=== PATIENT | female | born 1970 | race Caucasian/White ===

== ENCOUNTER 2016-09-27 15:38 | Emergency (ER) | payer BC, OTHER ==
[~2016-09-27] VITALS: Ht 160 cm; Wt 64.0 kg
[2016-09-27 15:55] VITALS: TEMP 37; Ht 160 cm; Wt 64.0 kg
[2016-09-27] MEDS ORDERED: HYDROmorphone INJ 1 MG/ML SYR IV STA ×2 (16:19→17:17)
[2016-09-27] MEDS ORDERED: SODIUM CHLORIDE 0.9% 1000ML 1,000 ML IV STA (16:19)
[2016-09-27] MEDS ORDERED: OPTIRAY 320 IV PRN (16:30)
[2016-09-27] MEDS ORDERED: CYAN10005 PO (16:31)
[2016-09-27] MEDS ORDERED: CHOLTAB11 PO (16:31)
[2016-09-27] MEDS ORDERED: LEVO75TA PO (16:31)
[2016-09-27] MEDS ORDERED: ASCO100061 PO (16:31)
[2016-09-27 16:54] LABS: ISTAT CREATININE 0.5 mg/dl (0.6-1.3); ISTAT IONIZED CALCIUM 1.11 mmol/l (1.12-1.32)
[2016-09-27 16:58] LABS: BASO % 0.4 %; BASO ABS # 0.03 K/uL (0-0.2); COMPLETE YES; EOS % 1.8 %; HEMATOCRIT 41.4 % (37-47); IG% 0.3 %; LYMPH % 30.9 %; LYMPH ABS # 2.37 K/uL (1.2-3.4); MEAN CELL VOLUME 93.7 fL (80-100); MEAN CORPUSCULAR HEMOGLOBIN 33.7 pg (25-34); MONO % 8.3 %; NEUT % 58.3 %; PLATELET COUNT 268 K/uL (130-400); RED BLOOD COUNT 4.42 M/uL (4.2-5.4); WHITE BLOOD COUNT 7.68 K/uL (4.8-10.8)
--- NOTE | 2016-09-27 17:08 | DIAGNOSTIC IMAGING REPORT ---
CT ABD/PELVIS IV CONTRAST ONLY CLINICAL HISTORY: Left-sided abdominal pain. Trauma. Fall down 2 flights of stairs. COMPARISON STUDY: None. TECHNIQUE: Following the IV administration of 119 mL of Optiray-320, CT scan of the abdomen and pelvis was performed from the lung bases to the proximal femurs. Images are reviewed in the axial, sagittal, and coronal planes. IV contrast was administered without complication. A dose lowering technique was utilized adhering to the principles of ALARA. CT DOSE: FINDINGS: Lower chest: There is a 4 mm right lower lobe pulmonary nodule abutting the diaphragmatic surface. There is minimal basilar atelectatic change. No pneumothorax is visualized. Liver: There are too small to characterize subcentimeter hepatic hypodensities, likely representing cysts. Gallbladder: There is a layering bile. There is an equivocal tiny gallstone. Spleen: Normal in size and attenuation. Pancreas: Unremarkable. Adrenal glands: Unremarkable. Kidneys: There is symmetric renal cortical enhancement. The kidneys are normal in size without hydronephrosis. Bowel: There are no transition zones indicate bowel obstruction. The appendix appears normal. There is no acute diverticulitis. Peritoneum: There is no intraperitoneal free air or abdominal ascites. Vasculature: The abdominal aorta is normal in course and caliber. Adenopathy: None. Pelvic viscera: The uterus appears surgically absent. Skeletal structures: There is an age-indeterminate fracture the left 12th rib. There is a healing fracture the left ninth rib IMPRESSION: 1. Age-indeterminate fracture the left 12th rib 2. Old healing fracture of the left ninth rib 3. No evidence of acute intra-abdominal or pelvic injury Electronically signed by: Henry Ye M.D. 09/27/2016 5:07 PM Dictated Date/Time: 09/27/2016 5:02 PM
--- NOTE | 2016-09-27 17:10 | DIAGNOSTIC IMAGING REPORT ---
(CHEST) THORAX WITH CT DOSE: 772.66 mGycm HISTORY: Trauma. Pain. left chest trauma. 2 flights fall down stairs TECHNIQUE: Multiaxial CT images of the chest were performed following the intravenous administration of contrast. A dose lowering technique was utilized adhering to the principles of ALARA. COMPARISON: None. FINDINGS: The lungs are clear. The mediastinal vascular structures are within normal limits. No mediastinal or hilar lymphadenopathy. No pleural effusion or pneumothorax. Limited views of the upper abdomen demonstrate a normal liver and spleen. Nondisplaced cortical fracture anterior left 10th and possibly left eighth rib. No evidence pneumothorax. IMPRESSION: 1. Nondisplaced cortical fracture anterior left 10th and possibly eighth rib. 2. Otherwise negative CT of the chest. 3. Fatty infiltration of liver. The above report was generated using voice recognition software. It may contain grammatical, syntax or spelling errors. Electronically signed by: Pepe Leary M.D. 09/27/2016 5:08 PM Dictated Date/Time: 09/27/2016 5:06 PM
[2016-09-27 17:13] LABS: URINE APPEARANCE CLEAR (CLEAR); URINE BILIRUBIN NEG (NEG); URINE COLOR YELLOW; URINE NITRITE NEG (NEG); URINE PH 5.5 (4.5-7.5); URINE SPECIFIC GRAVITY 1.011 (1.000-1.030); UROBILINOGEN NEG (NEG); ZZUR CULT IF INDIC CLEAN CATCH NO
[2016-09-27 17:16] LABS: MANUAL MICROSCOPIC REQUIRED? NO; REVIEW REQ? NO
[2016-09-27 17:18] LABS: CALCIUM 9.7 mg/dl (8.5-10.1); CREATININE 0.71 mg/dl (0.60-1.20); POTASSIUM 3.6 mmol/L (3.5-5.1)
[2016-09-27] MEDS ORDERED: OXYCODONE IR HOME PACK PO ONE (17:45)
[2016-09-27] MEDS ORDERED: OXYC1TAB3 PO (17:52)
--- NOTE | 2016-09-27 17:54 | EMERGENCY ROOM VISIT NOTE ---
History Report prepared by Nathalia: Camilla Casiano Under the Supervision of: Dr. Luis Alfredo Aly M.D. First contact with patient: 16:09 Chief Complaint: RIB PAIN Stated Complaint: FALL/BROKEN RIBS History of Present Illness The patient is a 46 year old female who presents to the Emergency Room with complaints of persistent left rib pain starting 1 month ago. The patient follows with neurology for balance and vision problems. She falls often. She has broken her ribs several times in the past. One month ago, she fell and thought that she broke her ribs. She reports clicking and popping in her ribs. People nearby can hear these sounds. She followed with her PCP who told her that she did not have a break. She has noticed recently that she is SOB. She called her doctor yesterday who told her to present to the ED. In the middle of the night last night, she fell down the stairs and thinks she might have hit her left side on the corner of the step. She denies any abdominal pain, head injury, neck injury, or LOC. She is able to move her arms and legs. Source of History: patient Onset: 1 month ago Position: other (left rib) Quality: other (pain, injury) Timing: other (persistent) Associated Symptoms: + SOB, No LOC, No headache, No neck pain, No abdominal pain Review of Systems See HPI for pertinent positives & negatives. A total of 10 systems reviewed and were otherwise negative. Past Medical & Surgical Surgical Problems: (1) S/P hysterectomy Family History No pertinent family history stated. Social History Smoking Status: Never Smoker Marital Status: Housing Status: lives with family Current/Historical Medications Scheduled Ascorbic Acid (Ascorbic Acid), 1 TAB PO DAILY Cholecalciferol (D-5000), 1 TAB PO DAILY Cyanocobalamin (Vitamin B-12), 1,000 MCG PO DAILY Levothyroxine Sodium (Synthroid), 75 MCG PO DAILY Scheduled PRN Oxycodone Immediate Rel Tab (Roxicodone Ir), 1-2 TAB PO Q4H PRN for Severe Pain Allergies Coded Allergies: Amoxicillin (Unverified Allergy, Severe, HIVES, 09/27/16) Clavulanic Acid (Unverified Allergy, Severe, HIVES, 09/27/16) Physical Exam Vital Signs Date Time Temp Pulse Resp B/P (MAP) Pulse Ox O2 Delivery O2 Flow Rate FiO2 09/27/16 18:02 76 16 135/89 98 Room Air 09/27/16 17:29 81 18 149/101 98 Room Air 09/27/16 15:55 37.0 66 18 161/116 97 Room Air Physical Exam GENERAL: Patient is well appearing and in moderate distress. HEENT: No acute trauma, normocephalic atraumatic, mucous membranes moist, no nasal congestion, no scleral icterus. NECK: No stridor, no adenopathy, no meningismus, trachea is midline. LUNGS: No dyspnea. Clear to auscultation and equal bilaterally. No wheeze, no rhonchi. HEART: Regular rate and rhythm. No murmurs, rubs, gallops appreciated. ABDOMEN: Soft, mild tenderness to the LUQ and left lateral abdomen, bowel sounds positive, no masses appreciated, no peritonitis. Significant pain with palpation of the left lower lateral ribs. BACK: No midline tenderness, positive left CVA tenderness to palpation with bruising to the left flank. EXTREMITIES: Normal motion all extremities, no cyanosis, no edema. NEUROLOGIC: Alert and oriented, no acute motor or sensory deficits, no focal weakness, cranial nerves grossly intact. SKIN: No rash, no jaundice, no diaphoresis. Medical Decision & Procedures ER Provider Diagnostic Interpretation: Radiology results and stated below per my review and radiologist interpretation: (CHEST) THORAX WITH CT DOSE: 772.66 mGycm HISTORY: Trauma. Pain. left chest trauma. 2 flights fall down stairs TECHNIQUE: Multiaxial CT images of the chest were performed following the intravenous administration of contrast. A dose lowering technique was utilized adhering to the principles of ALARA. COMPARISON: None. FINDINGS: The lungs are clear. The mediastinal vascular structures are within normal limits. No mediastinal or hilar lymphadenopathy. No pleural effusion or pneumothorax. Limited views of the upper abdomen demonstrate a normal liver and spleen. Nondisplaced cortical fracture anterior left 10th and possibly left eighth rib. No evidence pneumothorax. IMPRESSION: 1. Nondisplaced cortical fracture anterior left 10th and possibly eighth rib. 2. Otherwise negative CT of the chest. 3. Fatty infiltration of liver. The above report was generated using voice recognition software. It may contain grammatical, syntax or spelling errors. Electronically signed by: Pepe Leary M.D. 09/27/2016 5:08 PM Dictated Date/Time: 09/27/2016 5:[address] ABD/PELVIS IV CONTRAST ONLY CLINICAL HISTORY: Left-sided abdominal pain. Trauma. Fall down 2 flights of stairs. COMPARISON STUDY: None. TECHNIQUE: Following the IV administration of 119 mL of Optiray-320, CT scan of the abdomen and pelvis was performed from the lung bases to the proximal femurs. Images are reviewed in the axial, sagittal, and coronal planes. IV contrast was administered without complication. A dose lowering technique was utilized adhering to the principles of ALARA. CT DOSE: FINDINGS: Lower chest: There is a 4 mm right lower lobe pulmonary nodule abutting the diaphragmatic surface. There is minimal basilar atelectatic change. No pneumothorax is visualized. Liver: There are too small to characterize subcentimeter hepatic hypodensities, likely representing cysts. Gallbladder: There is a layering bile. There is an equivocal tiny gallstone. Spleen: Normal in size and attenuation. Pancreas: Unremarkable. Adrenal glands: Unremarkable. Kidneys: There is symmetric renal cortical enhancement. The kidneys are normal in size without hydronephrosis. Bowel: There are no transition zones indicate bowel obstruction. The appendix appears normal. There is no acute diverticulitis. Peritoneum: There is no intraperitoneal free air or abdominal ascites. Vasculature: The abdominal aorta is normal in course and caliber. Adenopathy: None. Pelvic viscera: The uterus appears surgically absent. Skeletal structures: There is an age-indeterminate fracture the left 12th rib. There is a healing fracture the left ninth rib IMPRESSION: 1. Age-indeterminate fracture the left 12th rib 2. Old healing fracture of the left ninth rib 3. No evidence of acute intra-abdominal or pelvic injury Electronically signed by: Henry Ye M.D. 09/27/2016 5:07 PM Dictated Date/Time: 09/27/2016 5:02 PM Laboratory Results 09/27/16 16:30 Red Blood Count 4.42, Mean Corpuscular Volume 93.7, Mean Corpuscular Hemoglobin 33.7, Mean Corpuscular Hemoglobin Concent 36.0, Mean Platelet Volume 10.0, Neutrophils (%) (Auto) 58.3, Lymphocytes (%) (Auto) 30.9, Monocytes (%) (Auto) 8.3, Eosinophils (%) (Auto) 1.8, Basophils (%) (Auto) 0.4, Neutrophils # (Auto) 4.48, Lymphocytes # (Auto) 2.37, Monocytes # (Auto) 0.64, Eosinophils # (Auto) 0.14, Basophils # (Auto) 0.03 09/27/16 16:30 Test 09/27/16 16:30 09/27/16 16:43 White Blood Count 7.68 K/uL (4.8-10.8) Red Blood Count 4.42 M/uL (4.2-5.4) Hemoglobin 14.9 g/dL (12.0-16.0) Hematocrit 41.4 % (37-47) Mean Corpuscular Volume 93.7 fL (80-100) Mean Corpuscular Hemoglobin 33.7 pg (25-34) Mean Corpuscular Hemoglobin Concent 36.0 g/dl (32-36) Platelet Count 268 K/uL (130-400) Mean Platelet Volume 10.0 fL (7.4-10.4) Neutrophils (%) (Auto) 58.3 % Lymphocytes (%) (Auto) 30.9 % Monocytes (%) (Auto) 8.3 % Eosinophils (%) (Auto) 1.8 % Basophils (%) (Auto) 0.4 % Neutrophils # (Auto) 4.48 K/uL (1.4-6.5) Lymphocytes # (Auto) 2.37 K/uL (1.2-3.4) Monocytes # (Auto) 0.64 K/uL (0.11-0.59) Eosinophils # (Auto) 0.14 K/uL (0-0.5) Basophils # (Auto) 0.03 K/uL (0-0.2) RDW Standard Deviation 42.9 fL (36.4-46.3) RDW Coefficient of Variation 12.4 % (11.5-14.5) Immature Granulocyte % (Auto) 0.3 % Immature Granulocyte # (Auto) 0.02 K/uL (0.00-0.02) Urine Color YELLOW Urine Appearance CLEAR (CLEAR) Urine pH 5.5 (4.5-7.5) Urine Specific Volin 1.011 (1.000-1.030) Urine Protein NEG (NEG) Urine Glucose (UA) NEG (NEG) Urine Ketones NEG (NEG) Urine Occult Blood NEG (NEG) Urine Nitrite NEG (NEG) Urine Bilirubin NEG (NEG) Urine Urobilinogen NEG (NEG) Urine Leukocyte Esterase MODERATE (NEG) Urine WBC (Auto) 5-10 /hpf (0-5) Urine RBC (Auto) 0-4 /hpf (0-4) Urine Hyaline Casts (Auto) 0 /lpf (0-5) Urine Epithelial Cells (Auto) 10-20 /lpf (0-5) Urine Bacteria (Auto) NEG (NEG) Est Creatinine Clear Calc Drug Dose 88.2 ml/min Estimated GFR () 117.6 Estimated GFR (Non- 101.4 BUN/Creatinine Ratio 12.0 (10-20) Calcium Level 9.7 mg/dl (8.5-10.1) Bedside Hemoglobin 16.0 g/dl (12.0-16.0) Bedside Hematocrit 47 % (37-47) Bedside Sodium 139 mEq/L (135-144) Bedside Potassium 3.7 mEq/L (3.3-5.0) Bedside Chloride 103 mEq/L (101-112) Bedside Total CO2 23 mEq/l (24-31) Anion Gap 18.0 mmol/L (16-25) Bedside Blood Urea Nitrogen 9 mg/dl (7-18) Bedside Creatinine 0.5 mg/dl (0.6-1.3) Bedside Glucose (other) 82 mg/dl (70-99) Bedside Ionized Calcium (Tam) 1.11 mmol/l (1.12-1.32) Laboratory results as reviewed by me. Medications Administered Medications (Trade) Dose Ordered Sig/Liberty Route Start Time Stop Time Status Last Admin Dose Admin Sodium Chloride 1,000 ml @ 999 mls/hr Q1H1M STAT IV 09/27/16 16:19 09/27/16 17:19 DC 09/27/16 16:19 999 MLS/HR Hydromorphone HCl (Dilaudid Inj) 1 mg NOW STAT IV 09/27/16 16:19 09/27/16 16:22 DC 09/27/16 16:34 1 MG Hydromorphone HCl (Dilaudid Inj) 1 mg NOW STAT IV 09/27/16 17:17 09/27/16 17:18 DC 09/27/16 17:27 1 MG Oxycodone HCl (Roxicodone Immediate Rel 5MG Home Pack) 1 homepack UD ONCE PO 09/27/16 17:45 09/27/16 17:46 DC 09/27/16 17:45 1 HOMEPACK Ondansetron HCl (Zofran Inj) 4 mg NOW STAT IV 09/27/16 17:55 09/27/16 17:56 DC 09/27/16 17:55 4 MG ED Course 1611: The patient was evaluated in room C1B. A complete history and physical exam was performed. 1619: Dilaudid Inj 1 mg IV, NSS 1000 ml @ 999 mls/hr IV. 1715: I reevaluated the patient. She notes that the pain is better, but she is asking for more pain medications. 1717: Dilaudid Inj 1 mg IV. 1741: I reevaluated the patient. She is feeling much better. I discussed the results with her. I discussed the need for follow up with her PCP for her rib fracture and lung nodule. I reviewed symptoms requiring immediate return to ER. She verbalized understanding and agreement. She will be discharged home. 1745: Oxycodone HCl 1 homepack PO. 1755: Zofran Inj 4 mg IV. Medical Decision Differential: Intracranial Injury, Cervical Injury, Intrathoracic/Abdominal Injury, Neurologic Injuries, Fractures/Dislocations, Lacerations, Tetanus Status , amongst other pathologies entertained. 46 yr old female with injury to left flank last evening after fall down 2 flights of stairs. No head, neck pain nor neuro deficits. Does have recent trauma last month to same flank. With acute trauma, bruising of left flank, and symptoms I feel that CT indicated at this time for trauma work-up. Will avoid CXR as clear lungs, midline trachea and ct will be done anyways. CT with left rib fractures consistent with injury. Abdomen negative without evidence spleen/kidney injury. Abdomen soft non-tender. Pain controlled. Nodule right lung noted, reviewed with patient and advised PCP review as well. Stable and breathing comfortably in much less discomfort after pain meds. Mild nausea thus zofran. Reviewed standard dc instructions and symptoms/findings requiring RTED. [place] Drug Monitoring Program Search Results: patient reviewed within database Drug Monitoring Findings: Patient had 30 [place] 7.5 tablets prescribed on August 24. Medication Reconcilliation Current Medication List: was personally reviewed by me Blood Pressure Screening Patient's blood pressure: Elevated blood pressure Blood pressure disposition: Elevated BP felt to be situational Impression Primary Impression: Multiple fractures of ribs of left side Additional Impressions: Pulmonary nodule, right Fall Injury to flank Scribe Attestation The scribe's documentation has been prepared under my direction and personally reviewed by me in its entirety. I confirm that the note above accurately reflects all work, treatment, procedures, and medical decision making performed by me. Departure Information Dispostion Home / Self-Care Prescriptions Oxycodone Immediate Rel Tab (ROXICODONE IR) 5 Mg Tab 1-2 TAB PO Q4H Y for Severe Pain, #30 TAB Prov: Luis Alfredo Aly M.D. 09/27/16 Referrals Arnold Zavala M.D. (PCP) Patient Instructions ED Fx Rib, My [facility] Additional Instructions Please follow up with your primary provider to discuss pain control, repeat evaluation and to have discussion regarding the 4 mm right lower lung nodule. You have received a narcotic pain medication prescription. These medications may cause drowsiness and should not be used with other sedative medications. Do not drive, drink alcohol, perform dangerous activities, nor make important decisions after taking these medications. snf use or inappropriate use may lead to addiction. Problem Qualifiers
[2016-09-27] MEDS ORDERED: ONDANSETRON INJ 2 MG/ML 2 ML VIAL IV STA (17:55)
[2016-09-27 18:02] VITALS: BP 135/89; PULSE 76; O2SAT 98
== END 2016-09-27 18:13 | disposition home or self-care (01) ==
LOC: C.EDB 15:39 → C.EDC 18:13
DX: S22.42XA Multiple fractures of ribs, left side, initial encounter for closed fracture (principal); S39.91XA Unspecified injury of abdomen, initial encounter; W19.XXXA Unspecified fall, initial encounter; R91.1 Solitary pulmonary nodule; Z90.710 Acquired absence of both cervix and uterus; Z79.899 Other long term (current) drug therapy; Z88.1 Allergy status to other antibiotic agents; Z88.8 Allergy status to other drugs, medicaments and biological substances

== ENCOUNTER → 2017-02-12 | Outpatient (CLI) | payer OTHER ==
[~2017-02-12] MED LIST: ASCO100061 PO; CHOLTAB11 PO; CYAN10005 PO; LEVO75TA PO; OXYC1TAB3 PO
--- NOTE | 2017-02-12 14:26 | DIAGNOSTIC IMAGING REPORT ---
(CHEST) THORAX WITHOUT CLINICAL HISTORY: 47 years-old Female presenting with 4 MM LUNG NODULE. TECHNIQUE: Multidetector CT imaging of the chest was performed without the use of intravenous contrast. IV contrast: None. A dose lowering technique was used consistent with the principles of ALARA (as low as reasonably achievable). COMPARISON: 09/27/2016.. CT DOSE (mGy.cm): The estimated cumulative dose is 362.20 mGycm. FINDINGS: Account Information Clerk topogram: Unremarkable. On soft tissue windows, normal thyroid and thoracic inlet. No axillary, supraclavicular, hilar, or mediastinal lymphadenopathy. Normal aorta. Normal heart size. No pericardial or pleural effusion. Few subcentimeter hypodensities in the liver incompletely characterized but likely hepatic cysts. On lung windows, solid peripheral 2 mm nodule in the right upper lobe (series 4 image 76), unchanged. Solid triangular subpleural 4 mm nodule at the lateral basal right lower lobe (series 4 image 246), unchanged. Triangular peripheral solid 4 mm nodule in the superior lingula (series 4 image 115), unchanged. No new pulmonary nodule. Airways patent. On bone windows, normal osseous structures. IMPRESSION: 1. Stable solid pulmonary nodules measuring up to 4 mm, unchanged since 09/27/2016. Follow-up per Jonas Society 2017 recommendations below. Please refer to below summary of Fleischner Society 2017 recommendations for follow-up of incidental CT nodules (H Sachi et al. Guidelines for management of incidental pulmonary nodules detected on CT images: From the Fleischner Society 2017. Radiology 2017; 284: 228-243.) SOLID NODULES Single nodule; size < 6 mm * Low risk patients: No routine follow-up * High risk patients: Optional CT at 12 months Single nodule; size 6-8 mm * Low risk patients: CT at 6-12 months, then consider CT at 18-24 months * High risk patients: CT at 6-12 months, then at 18-24 months Single nodule; size > 8 mm * Either low or high risk patients: Considered CT at 3 months, PET/CT, or tissue sampling Multiple nodules; size < 6 mm * Low risk patients: No routine follow up * High risk patients: Optional CT at 12 months Multiple nodules; size 6-8 mm * Low risk patients: CT at 3-6 months, then consider CT at 18-24 months * High risk patients: CT at 3-6 months, then at 18-24 months Multiple nodules; size > 8 mm * Low risk patients: CT at 3-6 months, then consider at 18-24 months * High risk patients: CT at 3-6 months, then at 18-24 months Note: These guidelines apply to incidental nodules. These guidelines do not apply to patients younger than 35 years, immunocompromised patients, or patients with cancer. * Low risk patients: Minimal or absent history of smoking and/or other known risk factors * High risk patients: History of smoking, exposure to other carcinogens, emphysema, fibrosis, upper lobe location, family history of lung cancer, etc. * If a nodule up to 8 mm is partly solid or is ground glass, further follow-up is required after 24 months to exclude possible slow growing adenocarcinoma. SUBSOLID NODULES Single ground-glass nodule * Nodule size < 6 mm: No routine follow-up * Nodule size > or = 6 mm: CT at 6-12 months to confirm persistence, then CT every 2 years until 5 years Single part-solid nodule * Nodule size < 6 mm: No routine follow-up * Nodules size > or = 6 mm: CT at 3-6 months to confirm persistence. If unchanged and solid component remains < 6 mm, annual CT should be performed for 5 years Multiple nodules * Nodule size < 6 mm: CT at 3-6 months. If stable, consider CT at 2 and 4 years. * Nodules size > or = 6 mm: CT at 3-6 months. Subsequent management based on the most suspicious nodule(s) Electronically signed by: Kayode Love M.D. 02/12/2017 2:25 PM Dictated Date/Time: 02/12/2017 2:20 PM
== END | disposition home or self-care (01) ==
LOC: C.CTS 14:05
PROVIDERS: ATTEND Family Medicine
DX: R91.1 Solitary pulmonary nodule (principal)

== ENCOUNTER → 2017-03-05 | Outpatient (CLI) | payer OTHER ==
--- NOTE | 2017-03-06 15:29 | MAMMOGRAPHY REPORT ---
BILATERAL DIGITAL SCREENING MAMMOGRAM TOMOSYNTHESIS WITH CAD: 03/05/2017 CLINICAL HISTORY: Routine screening. Patient has no complaints. TECHNIQUE: Breast tomosynthesis in addition to standard 2D mammography was performed. Current study was also evaluated with a Computer Aided Detection (CAD) system. COMPARISON: Comparison is made to exams dated: 02/24/2016 mammogram, 01/18/2016 mammogram, 5 mammogram - [facility], 02/19/2013 mammogram, 08/07/2011 mammogram, and 01/23/2006 mammogram - [facility]. BREAST COMPOSITION: There are scattered areas of fibroglandular density in both breasts. FINDINGS: There is stable expected architectural distortion in the 12:00 anterior left breast, and an area of prior surgery. Stable asymmetry in the medial right breast. No new suspicious mass, galdino ectural distortion or cluster of microcalcifications is seen. IMPRESSION: ACR BI-RADS CATEGORY 1: NEGATIVE There is no mammographic evidence of malignancy. A 1 year screening mammogram is recommended. The pa tient will receive written notification of the results. Approximately 10% of breast cancers are not detected with mammography. A negative mammographic report should not delay biopsy if a clinically suggestive mass is present. Sosa Olea M.D. ay/:03/05/2017 16:03:18 Cath Lab Tech: Coral RUBI)(M), [facility] letter sent: Normal 1/2 BI-RADS Code: ACR BI-RADS Category 1: Negative
== END | disposition home or self-care (01) ==
LOC: C.MAMM 08:36
PROVIDERS: ATTEND Obstetrics & Gynecology
DX: Z12.31 Encounter for screening mammogram for malignant neoplasm of breast (principal)

== ENCOUNTER → 2017-04-02 | Outpatient (CLI) | payer OTHER ==
[~2017-04-02] MED LIST changes: -OXYC1TAB3 PO
--- NOTE | 2017-04-02 14:56 | DIAGNOSTIC IMAGING REPORT ---
HEAD WITHOUT CONTRAST (CT) CT DOSE: 690.05 mGycm HISTORY: Trauma HEADACHE, POSSIBLE CONCUSSION TECHNIQUE: Multiaxial CT images of the head were performed without the use of intravenous contrast. A dose lowering technique was utilized adhering to the principles of ALARA. Comparison: None. Findings: The paranasal sinuses and mastoid air cells are clear. The calvarium and skull base are intact. The ventricles and sulci are within normal limits. There is no mass, hematoma, midline shift, or acute infarct. Impression: No acute intracranial abnormality. The above report was generated using voice recognition software. It may contain grammatical, syntax or spelling errors. Electronically signed by: Pepe Leary M.D. 04/02/2017 2:55 PM Dictated Date/Time: 04/02/2017 2:53 PM
== END | disposition home or self-care (01) ==
LOC: C.CTS 14:38
PROVIDERS: ATTEND Family Medicine
DX: R51 Headache (principal)

== ENCOUNTER → 2017-06-28 | Outpatient (CLI) | payer OTHER | END | disposition home or self-care (01) | LOC: C.PAPS 15:28 | PROVIDERS: ATTEND Obstetrics & Gynecology | DX: D06.9 Carcinoma in situ of cervix, unspecified (principal) ==

== ENCOUNTER → 2017-10-17 | Outpatient (CLI) | payer OTHER ==
--- NOTE | 2017-10-17 08:02 | DIAGNOSTIC IMAGING REPORT ---
GALLBLADDER-ABD LIMITED HISTORY: 47 years-old Female BACK PAIN,GALLBLADDER PAIN acute right upper quadrant abdominal pain COMPARISON: CT abdomen and pelvis 09/27/2016 TECHNIQUE: Multiple real-time sonographic images of the abdominal right upper quadrant were obtained assessing grayscale appearance and color flow FINDINGS: The visualized pancreas appears unremarkable. Liver is within normal limits without focal mass, marginal nodularity or intrahepatic delayed ductal dilation. Common bile duct is normal, 3 mm. Gallbladder is within normal limits without wall thickening, shadowing cholelithiasis or pericholecystic fluid. Sonographic Stallworth sign reported as negative. Imaged right kidney is unremarkable, 10.6 cm in length. IMPRESSION: 1. No cholelithiasis or sonographic evidence of acute cholecystitis. 2. No biliary ductal dilation. The above report was generated using voice recognition software. It may contain grammatical, syntax or spelling errors. Electronically signed by: Rolo Arriaga M.D. 10/17/2017 8:01 AM Dictated Date/Time: 10/17/2017 7:56 AM
== END | disposition home or self-care (01) ==
LOC: C.ULTR 07:15
PROVIDERS: ATTEND General Practice
DX: M54.9 Dorsalgia, unspecified (principal); K82.9 Disease of gallbladder, unspecified

== ENCOUNTER 2024-11-16 23:40 | Inpatient (IN) ==
--- NOTE | 2024-11-17 01:10 | Emergency Department Note ---
Impression & Plan Mood disorder, Rapid weight loss admit to [facility] ED Provider Note NAME: ALVARO BELLO AGE: 54 SEX: Female INFORMANT: Patient ED PROVIDER(S): Jada Kahn DO CHIEF COMPLAINT: fall PLAN: Disposition: Admit to [facility] on an involuntary admission MEDICAL DECISION MAKING: This is a 54-year-old female patient who presents to the emergency department with dizziness, head pain and slurred speech. The patient describes suffering a fall yesterday where she hit the back of her head and blacked out for some time. She describes intermittent changes in her vision over the past 24 hours. Patient went on to explain that she has not had any food or drink for the past 93 days and has not moved her bowels in weeks. Her son is at the bedside who explains that she does take fruit and avocados and drinks plenty of clear liquids. Patient explains to me that she is not eating or drinking because her left her 3 months ago. The confirms that the patient has lost 40 to 60 pounds in the past 3 months. Patient does have a history of mental health issues with an attempted hanging in 2022 for which she was hospitalized in [place]. laboratory studies reveal negative alcohol, acetaminophen and aspirin levels. Urine drug screen was positive for marijuana and benzodiazepines. Patient does admit that she uses lorazepam at bedtime but has been taking it more frequently throughout the day. Other laboratory studies reveal a slightly low magnesium level at 1.6. H&H were stable. There was no significant leukocytosis. Patient had a CT scan of the brain and cervical spine as result of her fall from yesterday. These were unremarkable for trauma. The patient is purposely withholding food as a result of being significantly depressed about her marriage. The patient's actions are dangerous as she has lost nearly 50 pounds in 3 months. There was concern that the patient was unable to take care of herself and was causing self-harm. A 302 was petitioned by the ED psychiatric case therapist and upheld. The patient was evaluated by staff from [facility] and they have accepted her to their unit. Care/management discussed with: ED psychiatric case therapist Triage Nursing notes: reviewed and agree With them. Vital Signs: reviewed and unremarkable Additional History obtained from: patient's son and are at the bedside Chronic Medical/Social Conditions affecting care: chronic Lyme Differential Diagnosis: mood disorder, anemia, dehydration, renal failure, intracranial trauma, skull fracture, C-spine injury Diagnostics, independently interpreted by me: ECG: normal sinus rhythm at a rate of 68 with no signs of ischemia. The patient does have a prolonged QT at 508 ms. Cardiac Monitoring: Normal sinus rhythm at a rate of 67 Imaging studies: CT scan of the brain: As per [facility] CT scan of the cervical spine: [facility] HPI: 54 year old Female arrives for evaluation of dizziness, slurred speech, fall. patient presents to the emergency department with dizziness, head pain and slurred speech. The patient describes suffering a fall yesterday After standing up and becoming lightheaded where she hit the back of her head and blacked out for some time. She describes intermittent changes in her vision over the past 24 hours. Patient went on to explain that she has not had any food or drink for the past 93 days and has not moved her bowels in weeks. Her son is at the bedside who explains that she does take fruit and avocados and drinks plenty of clear liquids. Patient explains to me that she is not eating or drinking because her left her 3 months ago. PAST MEDICAL HISTORY: chronic Lyme disease, depression, anxiety, C-spine fracture from a fall following alcohol consumption SOCIAL HISTORY: currently living with her son, from her 3 months ago, denies any current alcohol but had a previous history of alcohol use HOME MEDICATIONS: see list ALLERGIES: see list VITALS: See Below PHYSICAL EXAMINATION: Primary Survey Airway: Intact Breathing: Normal, breath sounds equal bilaterally Circulation: Skin warm, distal pulses 2+, capillary refill less than 2 seconds Disability Pupils: Equal and reactive to light, 4mm, brisk GCS: 15, E = 6 V=5 M= 4 Motor Function: Moves all extremities. Sensory: No deficits Secondary Survey GEN: Well developed and well-nourished HEAD: Normal cephalic atraumatic EYES: Pupils round reactive to light, conjunctiva clear, extraocular movements intact, no raccoons eyes ENT: No fluid in external acoustic canals, no hemotympanum, no soler's sign, nares patent, oropharynx clear NECK: No JVD, midline trachea, no cervical spine tenderness HEART: Regular rate and rhythm LUNGS: Clear to auscultation bilaterally. CHEST: Chest wall non-tender, no bruising/deformity ABD: No Wilkinson-Nieves's or Charlotte's sign, soft, non-tender, no rebound or guarding, PELVIS: Stable to rock BACK: No step offs or deformities, T-L spine non tender EXT: 2+ global pulses, moving all extremities well, +5/5 muscle strength globally NEURO: CNII-XII grossly intact, no sensory deficits emergency department treatment: ekg monitor tech, normal saline bolus Emergency department course: The patient was evaluated in room B-9. A complete history and physical was performed. Laboratory studies were drawn as above. The patient was bolused with IV normal saline solution. CT scan of the head and C-spine were negative for acute traumatic injury. Patient was evaluated by the ED psychiatric case therapist. Past Med/Surg History Problem List (Updated 10/10/17 @ 20:27 by [employer]) Rapid weight loss (Acute) Mood disorder (Acute) Well woman exam with routine gynecological exam S/P hysterectomy (Chronic) Family History (Updated 08/25/21 @ 15:10 by Coral Orozco) Grandmother (Maternal) Ovarian cancer Denies family history of Prostate cancer Myocardial infarction Breast cancer Colorectal cancer Social History (Updated 08/25/21 @ 15:11 by Coral Orozco) Smoking Status: Never smoker Second Hand Exposure: No; Do You Dip or Chew Tobacco: No; Hx Alcohol Use: No Hx Substance Use: No Preferred Language: [place] marital status: Current Living Situation: Spouse current occupational status: disabled How many Children do You have: 2 Feels Safe at Home: Yes Gender Identity: Female Allergies Allergies Allergy/AdvReac Type Severity Reaction Status Date / Time amoxicillin Allergy Severe HIVES Verified 11/17/24 01:58 clavulanic acid Allergy Severe HIVES Verified 11/17/24 01:58 Home Meds Home Medications Medication Instructions Recorded Confirmed alprazolam 0.5 mg tablet (Xanax) 0.5 mg PO DAILY PRN Anxiety 08/25/21 11/17/24 clonidine HCl 0.1 mg tablet 0.1 mg PO QPM 08/25/21 11/17/24 montelukast 10 mg tablet 10 mg PO QPM 08/25/21 11/17/24 (Singulair) valacyclovir 1 gram tablet 1,000 mg PO QDL 08/25/21 11/17/24 medical marjuana 1 dose inhalation DIRECTED PRN 05/20/23 11/17/24 NEEDED B-complex with vitamin C 1 tab PO DAILY 11/17/24 11/17/24 Butyrate 500 mg PO BID 11/17/24 11/17/24 Lam 4.2 mg PO BID 11/17/24 11/17/24 Magnesium-Theor 288 mg PO QAM 11/17/24 11/17/24 Pancreatic Enzyme Tabs 500 mg PO BID 11/17/24 11/17/24 Piceid Resveratrol 1 tab PO DAILY 11/17/24 11/17/24 Pure Encap. Probiotic 50 billion cells PO BID 11/17/24 11/17/24 S.boulardii 5 billion cell-yeast 2 cap PO BID 11/17/24 11/17/24 200 mg capsule, delayed release acetylcarnitine 500 mg capsule 500 mg PO BID 11/17/24 11/17/24 ascorbic acid (vitamin C) 1,000 mg 1,000 mg PO BID 11/17/24 11/17/24 tablet (Vitamin C) ashwagandha extract 500 mg capsule 500 mg PO QAM 11/17/24 11/17/24 berberine-herbal drugs capsule 1 cap PO QAM 11/17/24 11/17/24 bupropion HCl 150 mg 24 hr tablet, 150 mg PO QAM 11/17/24 11/17/24 extended release (Wellbutrin XL) cholecalciferol (vitamin D3) 125 125 mcg PO BID 11/17/24 11/17/24 mcg (5,000 unit) tablet (Vitamin D3) coQ10 (ubiquinol) 100 mg capsule 300 mg PO QAM 11/17/24 11/17/24 curcumin-phosphatidylcholine 500 500 mg PO QAM 11/17/24 11/17/24 mg capsule famotidine 40 mg tablet 40 mg PO BID 11/17/24 11/17/24 fexofenadine 180 mg tablet 180 mg PO BID 11/17/24 11/17/24 hydroxyzine HCl 50 mg tablet 25 mg PO HS 11/17/24 11/17/24 levothyroxine 25 mcg tablet 25 mcg PO DAILY 11/17/24 11/17/24 niacinamide 500 mg tablet 500 mg PO DAILY 11/17/24 11/17/24 omega-3 fatty acids 1,250 mg 1,250 mg PO BID 11/17/24 11/17/24 capsule rosuvastatin 40 mg tablet 40 mg PO DAILY 11/17/24 11/17/24 soybean, fermented 50 mg capsule 100 mg PO QPM 11/17/24 11/17/24 (Nattokinase) vitamin D-olamznksx-vlbdmdanznvtz, 1 tab PO BID 11/17/24 11/17/24 citrus 625 mg tablet (Quercetin Complex) vitamin E 180 mg/2 mL oral drops 180 mg PO QAM 11/17/24 11/17/24 zinc gluconate 30 mg tablet 30 mg PO DAILY 11/17/24 11/17/24 Results & Data (ED) Vital Signs Vital Signs - 24 hr 11/16/24 23:47 11/17/24 00:03 11/17/24 00:30 Temperature 36.8 C Temperature Source Temporal Artery Scan Pulse Rate 83 68 67 Pulse Rate from SpO2 Sensor Pulse Rhythm Regular Pulse Strength Normal Respiratory Rate 20 20 Respiratory Effort / Characteristics Non-Labored Spontaneous Respiratory Depth Normal Respiratory Pattern Regular Blood Pressure 149/102 H 121/82 Blood Pressure Mean 117 107 Blood Pressure Position Sitting Pulse Oximetry 100 99 Oxygen Delivery Method Room Air Sepsis Recent Fever Within 48 Hours No Sepsis New/Unexplained Change in Mental Status No Sepsis Action Taken by Nursing No Action Required 11/17/24 01:00 11/17/24 02:00 11/17/24 02:30 Temperature Temperature Source Pulse Rate 68 60 67 Pulse Rate from SpO2 Sensor Pulse Rhythm Pulse Strength Respiratory Rate 18 14 22 Respiratory Effort / Characteristics Respiratory Depth Respiratory Pattern Blood Pressure 132/90 125/84 145/103 H Blood Pressure Mean 104 90 111 Blood Pressure Position Pulse Oximetry 98 99 97 Oxygen Delivery Method Sepsis Recent Fever Within 48 Hours Sepsis New/Unexplained Change in Mental Status Sepsis Action Taken by Nursing 11/17/24 03:24 11/17/24 03:28 Temperature Temperature Source Pulse Rate 63 67 Pulse Rate from SpO2 Sensor 64 Pulse Rhythm Pulse Strength Respiratory Rate 19 20 Respiratory Effort / Characteristics Respiratory Depth Respiratory Pattern Blood Pressure 137/99 137/99 Blood Pressure Mean 111 111 Blood Pressure Position Pulse Oximetry 97 99 Oxygen Delivery Method Room Air Room Air Sepsis Recent Fever Within 48 Hours Sepsis New/Unexplained Change in Mental Status Sepsis Action Taken by Nursing Laboratory Data 11/17/24 00:05 11/17/24 00:05 Lab Results 11/17/24 11/17/24 11/17/24 Range/Units 00:05 01:35 03:30 WBC 6.45 (4.8-10.8) K/ul RBC 3.89 L (4.20-5.40) M/uL Hgb 11.0 L (12.0-16.0) g/dl Hct 33.8 L (37.0-47.0) % MCV 86.9 (80.0-100.0) fL MCH 28.3 (25.0-34.0) pg MCHC 32.5 (32.0-36.0) g/dL RDW Std Deviation 50.8 H (36.4-46.3) fL RDW Coeff of [place] 16.2 H (11.5-14.5) % Plt Count 317 (130-400) K/uL MPV 10.6 (9.4-12.4) fL Immature Gran % (Auto) 0.3 % Neut % (Auto) 42.6 % Lymph % (Auto) 46.5 % [place] % (Auto) 8.4 % Eos % (Auto) 1.4 % Baso % (Auto) 0.8 % Neut # (Auto) 2.75 (1.40-6.50) K/uL Lymph # (Auto) 3.00 (1.20-3.40) K/uL [place] # (Auto) 0.54 (0.11-0.59) K/uL Eos # (Auto) 0.09 (0.00-0.50) K/uL Baso # (Auto) 0.05 (0.00-0.20) K/uL Immature Gran # (Auto) 0.02 (0.01-0.20) K/uL Sodium 140 (136-145) mmol/L Potassium 4.1 (3.5-5.1) mmol/L Chloride 104 (98-107) mmol/L Carbon Dioxide 27 (21-32) mmol/L Anion Gap 9 (3-11) BUN 11 (6-23) mg/dl Creatinine 0.97 (0.6-1.2) mg/dl Est Cr Clr Drug Dosing 54.2 ml/min eGFR 69.01 BUN/Creatinine Ratio 11.3 (10-20) Glucose 83 (70-99(Fasting)) mg/dl Calcium 9.8 (8.6-10.3) mg/dl Phosphorus 3.3 (2.5-4.9) mg/dl Magnesium 1.6 L (1.7-2.4) mg/dl Total Bilirubin 0.5 (0.2-1.0) mg/dl AST 22 (13-39) U/L ALT 13 (7-52) U/L Alkaline Phosphatase 77 (34-104) U/L Total Protein 7.1 (6.0-8.3) gm/dl Albumin 4.2 (3.4-5.0) gm/dl Globulin 2.9 (2.5-4.0) gm/dl Albumin/Globulin Ratio 1.4 (0.9-2) TSH 6.957 H (0.300-4.500) uIu/ml Free T4 1.12 (0.61-1.60) ng/dl Urine Color Yellow Urine Appearance Clear (Clear) Urine pH 7.5 (4.5-7.5) Ur Specific [place] 1.004 (1.000-1.030) Urine Protein Negative (Negative) Urine Glucose (UA) Negative (Negative) Urine Ketones Negative (Negative) Urine Blood Negative (Negative) Urine Nitrite Negative (Negative) Urine Bilirubin Negative (Negative) Urine Urobilinogen Negative (Negative) Ur Leukocyte Esterase Negative (Negative) Urine Comment Salicylates < 3.0 L (3.0-30) mg/dl Urine Opiates Screen Neg (Neg) Ur Methadone, Qual Neg (Neg) Urine Fentanyl Screen Neg (Neg) Acetaminophen < 3 L (10-30) ug/ml Urine Barbiturates Neg (Neg) Ur Phencyclidine (PCP) Neg (Neg) U Amphetamin/Meth Scrn Neg (Neg) MDMA (Ecstasy) Screen Pos H (Neg) U Benzodiazepines Scrn Pos H (Neg) Ur Cocaine Metabolite Neg (Neg) U Marijuana (THC) Screen Pos H (Neg) Ethyl Alcohol mg/dL < 10.0 (<10.0) mg/dl SARS-CoV-2, RNA, NAAT NEGATIVE (NEGATIVE) Administered Medications Discontinued Medications Sodium Chloride (Nss) 1,000 mls @ 999 mls/hr IV .Q1H1M ONE Stop: 11/17/24 02:21 Last Infusion: 11/17/24 02:48 Dose: Infused Documented By: Admin: 11/17/24 01:45 Dose: 999 mls/hr Documented By: CELIA Co-signed By: NEHAL Imaging Data Radiologist's Impression: Cervical Spine CT 11/17/24 01:10 EXAM: CT cervical spine wo con CLINICAL HISTORY: fall TECHNIQUE: Computed tomography of the cervical spine performed without intravenous contrast. Contiguous axial images were obtained from the skull base to T2, with sagittal and coronal reformatted images reconstructed from the axial data. CT scan was performed according to ALARA (as low as reasonably achievable). 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 FINDINGS: Loss of cervical lordosis - suggest possibility of muscle spasm/positional. Degenerative changes involving cervical spine in the form of multilevel marginal osteophytes, disc space reduction and facetal arthrosis. Mild anterolisthesis of C2 over C3, C3 over C4, C4 over C5 and C5 over C6 vertebra.-new finding. Cervical vertebral bodies are normal in height and alignment, with no evidence of fracture or subluxation. Lateral masses of C1 are symmetrical, and the dens is intact. Prevertebral soft tissues are not widened. The remaining suprahyoid and infrahyoid soft tissues in the neck are unremarkable. Posterior uncovertebral arthrosis is noted at C2-C3 to C6-C7 levels, which indenting ventral thecal sac and causes bilateral neuroforaminal narrowing. Thyroid gland appears unremarkable. IMPRESSION: 1.No acute fracture or subluxation in the cervical spine. 2.Cervical spondylosis.-shows progression as compared to prior study. Electronically signed by Rudolph Sanders 11-17-2024 02:[address] 11/17/24 01:10 EXAM: CT head/brain wo con CLINICAL HISTORY: fall yesterday; slurred speech TECHNIQUE: Multiple axial images are obtained from the skull base to the vertex without contrast. CT scan was performed according to ALARA (as low as reasonably achievable). 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 FINDINGS: The brain shows normal morphology, attenuation, and volume for age. No evidence of space occupying lesion, hemorrhage, edema, mass effect, midline shift, extra axial collection, or hydrocephalus is noted. Ventricles, sulci, and basal cisterns are symmetric and normal in size and configuration. The knowles-white matter differentiation is preserved. Visualized paranasal sinuses and mastoid air cells are well aerated. Orbital contents are within normal limits. Bony structures are intact. IMPRESSION: 1. No evidence of acute intracranial abnormality is demonstrated. No other new interval abnormality since prior study. Electronically signed by Rudolph Sanders 11-17-2024 02:06 AM Discharge Plan Visit Data Chief Complaint: Fall Stated Complaint: DIZZY, SLURRED WORDS, BALANCE DIFFICULTY ED Provider: Jada Kahn Discharge Problem: Mood disorder, Rapid weight loss Patient Disposition: Admitted As Inpatient Condition: Fair Discharge Instructions Interventions: ED Discharge Assessment Last Done: 11/17/24 05:47
[2024-11-17 01:31] LABS: Hematocrit (blood only) 33.8 % (37.0-47.0); Hemoglobin 11.0 g/dl (12.0-16.0); Immature Granulocytes # (auto) 0.02 K/uL (0.01-0.20); Immature Granulocytes % (auto) 0.3 %; Mean Corpuscular Hemoglobin 28.3 pg (25.0-34.0); Mean Corpuscular Volume 86.9 fL (80.0-100.0); Platelet Count 317 K/uL (130-400); RDW Standard Deviation 50.8 fL (36.4-46.3); Red Blood Count 3.89 M/uL (4.20-5.40); White Blood Count 6.45 K/ul (4.8-10.8)
[2024-11-17 01:44] LABS: Alanine Aminotransferase 13.0 U/L (7-52); Albumin Globulin Ratio 1.4 (0.9-2); Albumin Level 4.2 gm/dl (3.4-5.0); Alkaline Phosphatase 77.0 U/L (34-104); Anion Gap 9.0 (3-11); Bilirubin,Total 0.5 mg/dl (0.2-1.0); Blood Urea Nitrogen 11.0 mg/dl (6-23); Calcium 9.8 mg/dl (8.6-10.3); Carbon Dioxide 27.0 mmol/L (21-32); Chloride 104.0 mmol/L (98-107); Creatinine Clr Calc Pharmacy 54.2 ml/min; Globulin 2.9 gm/dl (2.5-4.0); Glucose 83.0 mg/dl (70-99(Fasting)); Magnesium 1.6 mg/dl (1.7-2.4); Potassium 4.1 mmol/L (3.5-5.1); Sodium 140.0 mmol/L (136-145); Total Protein 7.1 gm/dl (6.0-8.3)
[2024-11-17] MEDS: SODIUM CHLORIDE 0.9% 1,000 ML IV ONE (01:45)
[2024-11-17 01:46] LABS: Acetaminophen < 3 ug/ml (10-30); Salicylate < 3.0 mg/dl (3.0-30)
[2024-11-17 01:50] LABS: Appearance Urine Clear (Clear); Glucose Urine UA Negative (Negative)
[2024-11-17 01:59] LABS: Thyroid Stimulating Hormone 6.957 uIu/ml (0.300-4.500)
--- NOTE | 2024-11-17 02:06 | CT Scan Report ---
EXAM: CT head/brain wo con CLINICAL HISTORY: fall yesterday; slurred speech TECHNIQUE: Multiple axial images are obtained from the skull base to the vertex without contrast. CT scan was performed according to ALARA (as low as reasonably achievable). COMPARISON: 20:09:22 SCREEN STRETCHER. FINDINGS: The brain shows normal morphology, attenuation, and volume for age. No evidence of space occupying lesion, hemorrhage, edema, mass effect, midline shift, extra axial collection, or hydrocephalus is noted. Ventricles, sulci, and basal cisterns are symmetric and normal in size and configuration. The knowles-white matter differentiation is preserved. Visualized paranasal sinuses and mastoid air cells are well aerated. Orbital contents are within normal limits. Bony structures are intact. IMPRESSION: 1. No evidence of acute intracranial abnormality is demonstrated. No other new interval abnormality since prior study. Electronically signed by Rudolph Sanders 11-17-2024 02:06 AM
--- NOTE | 2024-11-17 02:11 | CT Scan Report ---
EXAM: CT cervical spine wo con CLINICAL HISTORY: fall TECHNIQUE: Computed tomography of the cervical spine performed without intravenous contrast. Contiguous axial images were obtained from the skull base to T2, with sagittal and coronal reformatted images reconstructed from the axial data. CT scan was performed according to ALARA (as low as reasonably achievable). 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 FINDINGS: Loss of cervical lordosis - suggest possibility of muscle spasm/positional. Degenerative changes involving cervical spine in the form of multilevel marginal osteophytes, disc space reduction and facetal arthrosis. Mild anterolisthesis of C2 over C3, C3 over C4, C4 over C5 and C5 over C6 vertebra.-new finding. Cervical vertebral bodies are normal in height and alignment, with no evidence of fracture or subluxation. Lateral masses of C1 are symmetrical, and the dens is intact. Prevertebral soft tissues are not widened. The remaining suprahyoid and infrahyoid soft tissues in the neck are unremarkable. Posterior uncovertebral arthrosis is noted at C2-C3 to C6-C7 levels, which indenting ventral thecal sac and causes bilateral neuroforaminal narrowing. Thyroid gland appears unremarkable. IMPRESSION: 1.No acute fracture or subluxation in the cervical spine. 2.Cervical spondylosis.-shows progression as compared to prior study. Electronically signed by Rudolph Sanders 11-17-2024 02:10 AM
[2024-11-17 02:17] LABS: Amphetamines+Metham, Urine Neg (Neg); MDMA (Ecstacy), Urine Pos (Neg); Marijuana, Urine Pos (Neg)
[2024-11-17 02:37] LABS: T4 Free Thyroxine 1.12 ng/dl (0.61-1.60)
[2024-11-17] MEDS ORDERED: MAGNESIUM HYDROXIDE SUSP 30 ML UDC PO PRN (06:01)
[2024-11-17] MEDS ORDERED: BISMUTH SUBSALICYLATE 262 MG CHEW PO PRN (06:01)
[2024-11-17] MEDS ORDERED: ALUMINUM/MAGNESIUM SUSP 30 ML UDC PO PRN (06:01)
[2024-11-17] MEDS ORDERED: SODIUM CHLORIDE 0.65% NA SOLN 45 ML (OCEAN) PRN (06:01)
[2024-11-17 06:50] VITALS: O2SAT 100
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
[2024-11-17] MEDS: ACETAMINOPHEN 325 MG TAB PO PRN (11:20)
[2024-11-17] MEDS: ONDANSETRON 4 MG OD TAB PO PRN (11:53)
--- NOTE | 2024-11-17 12:28 | Electrocardiogram Report ---
Test Reason : Blood Pressure : */* mmHG Vent. Rate : 68 BPM Atrial Rate : 68 BPM P-R Int : 194 ms QRS Dur : 80 ms QT Int : 478 ms P-R-T Axes : 60 2 11 degrees QTcB Int : 508 ms Normal sinus rhythm Nonspecific ST and T wave abnormality Prolonged QT Abnormal ECG No previous ECGs available Confirmed by Ruben Elmore ([id number]) on 11/17/2024 12:28:37 PM Referred By: REFERRED SELF Confirmed By: Ruben Elmore
[2024-11-17] MEDS: GABAPENTIN 300 MG CAP PO SCH (18:26)
[2024-11-17] MEDS: OMEGA-3 (PURIFIED FISH OIL) 1 GM CAP PO SCH (18:26)
[2024-11-17] MEDS: ADVANCED PROBIOTIC 625 MG CAPSULE PO SCH (18:27)
[2024-11-17] MEDS: VITAMIN B COMPLEX TAB PO SCH (18:27)
[2024-11-17] MEDS: ONDANSETRON 2 MG OD TAB PO PRN (19:22)
[2024-11-17] MEDS: ASCORBIC ACID 500 MG TAB PO SCH (20:34)
[2024-11-17] MEDS: FEXOFENADINE HCL 180 MG TAB PO SCH (22:36)
[2024-11-17] MEDS: MIRTAZAPINE TAB 15 MG TAB PO SCH (22:36)
[2024-11-17] MEDS: MONTELUKAST SODIUM 10 MG TABLET PO SCH (22:37)
[2024-11-18 06:33] VITALS: BP 123/87; RESP 16; TEMP 97.9
[2024-11-18] MEDS: LEVOTHYROXINE SODIUM 75 MCG TABLET PO SCH (07:19)
--- NOTE | 2024-11-18 08:58 | Psychiatric Progress Note ---
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 (1) Major depressive disorder with psychotic features: (2) Hypothyroidism: (3) Balance problem: (4) History of recent fall: (5) Neurological Lyme disease: (6) Rapid weight loss: Plan 11/18/24: - Labs recommended by neurology were ordered and drawn (ESR hemoglobin A1c, CRP, EDMUND, RPR, Lyme Western blot. Does not look like we can do a B1 level. Vitamin EE, D and B12 were already ordered from yesterday. I also added a heavy metal test per her report of possible exposure to heavy metals at home. She was also in our discussion asking about mold testing, and so I will leave this up to the medical team to decide. - ordered the MRI of the brain and cervical spine with and without contrast, but not yet obtained - patient was discharged from our unit, and admitted to the hospitalist service for monitoring post seizure. - I updated the patient's , medical team and neurology. 11/17/24: -I did d/c the high dose vistaril and the famotidine due to the prolonged QTc. I also ordered a repeat EKG for tomorrow. I did not order any atypical supplements that are not on our formulary, and I am going to obtain vitamin A, D, and E levels before resuming those since they are fat soluble and can cause toxicity. B complex is OK to continue, but I did order a b12 level as well to ascertain whether she remains deficient (which can contribute to above symptoms). -thiamine 100mg BID x 7 days to prevent refeeding syndrome, as recommended by dietitian. -I discussed the risk, benefits, and alternative to adding Remeron for depression, anxiety, sleep and appetite. She expressed hesitation, and wanted to discuss with her first. She did call him, and ultimately agreed to take the medication. Started 15mg HS. -If Remeron is effective, we could decrease or d/c the Wellbutrin eventually. Continue at home dose for now. -I restarted Xanax at presumed home dose of 0.5mg HS. -Restarted home meds - levothyroxine, fexofendadine, montelukast, gabapentin, omega 3 and probiotic. - The patient was admitted to the [facility] ([facility]) on q15 min checks (behavioral with suicide precautions) for safety. The patient will participate in group, recreational, and milieu therapies and will be offered additional individual and family sessions as clinically appropriate. Today, I spent a total of 120 minutes on this patient's care, including review of chart, direct evaluation and counseling the patient, orders, discharge coordination, gathering collateral and updating family, coordination with nursing and consultants, interdisciplinary team meeting, and documentation (45 min). Inventory Assets Strengths: Reports willingness to eat and care for herself now. Supportive family. Needs: Development of self-care routines Suicide Risk Level Suicide Risk Level: Low (q15 min observation checks) Suicide Risk Level Comments: no SI prior to admission, none reported here. Risk Factors Assessment Male: No : Yes Do You Have Access To A Gun?: No Health Problems: Yes Mental Health Diagnoses: Yes Substance Use Disorders: Yes Previous Attempt: Yes Family History of Suicide: No Previous Psychiatric Hospitalization: Yes Hopelessness: No Protective Factors Assessment Employed: No Interval History Chief Complaint "[]". Review of Systems Sleep Information Total Hours of Sleep: 6.5 Sleep Comments: Arrived late in shift Meal Information Percent Meal Consumed - Breakfast: 50 Percent Meal Consumed - Dinner: 100 Subjective Subjective Patient was seen & assessed and interval progress reviewed with nursing and social work. Per nursing report, patient has been at times tangential and tearful. She did appear to have a positive visit with her son. It was revealed she is on parole (or possibly probation) due to assaulting a friend. It is believed this might have been related to the 's infidelity. As of this morning, she did sign an JUDY for the tactical/mobile watch officer and PCP, but had not signed for family yet. She continues to appear unsteady on her feet, and reports that it is her baseline. She is eating, but reporting nausea. Ate 50% of breakfast, skipped lunch and then on 100% of dinner. She also has reported intermittent dizziness. She does not appear to be responding to internal stimuli. No omid delusional content has been noted from her either. She continues to be tremulous in her whole body, but states "I am always shaking". She was seen by neurology who recommended full panel of lab work as well as MRI of the brain and cervical spine with and without contrast. They also mentioned possibly needing an LP - pt expressed concern, due to a bad experience with an LP in the past. Upon approach, patient was attending group. I met with her in her room. She had notably improved eye contact and grooming compared to yesterday. She said "you made a good change with my medication." She did sleep better last night. No hangover feeling this morning. She stated "I think coming here was a blessing in disguise." She endorsed a pleasant experience here so far. She d iscussed attempting to eat, and acknowledged that nausea has been a problem at times. She said "I want to eat. I want to live." Denies SI. Still has sadness about the current state of her marriage, but believes there may be reconciliation in the future. She was briefly tearful when discussing missing her dogs. A family member told her that they were looking for her, and that triggered the tearfulness. She reported increased anxiety this afternoon, in part related to anticipation of upcoming MRI (she tends to get claustrophobic). she reported her mood is improving. She had agreed to sign a release for her and for past providers who may have previous MRI records. She stated "I think coming here was a blessing in disguise." She endorsed pleasant experience here so far. She discussed attempting to eat, and acknowledged that nausea has been a problem at times. We discussed a possible conversion to voluntary status after I meet and discuss with the team in our morning meeting tomorrow. About 10 to 15 minutes into our encounter, at approximately 2:15 PM, patient suddenly let out a loud gasp, and fell to the side on her bed. She was unresponsive, with whole body convulsions. I was able to catch her, but she did slide part way off her bed with her knees ending up on the floor while she was convulsing. She did not hit her head. Convulsions lasted maybe 30 seconds total. I alerted the nursing staff via the call button and we called a code purple. When patient's convulsions completed, she did have total paralysis briefly. We moved her into the bed. she was confused and had a garbled speech at first. Her pupils were equal but not reactive at first. She was notably drooling. Within a few moments, she was able to state that her name was Natalee, but did not understand other orientation questions. Within several minutes, she was able to move all of her limbs as she came back to consciousness. At that point, the josh sotomayor team did arrive. We obtained a POC glucose which was 121. She did appear flushed, and vitals showed hypertension and tachycardia (which was a change from this morning). Exam also showed a small abrasion on the side of her tongue. The confusion resolved and her speech returned to baseline. She had nausea and did have 1 episode of emesis. Zofran 2 mg ODT was given. The medical team arranged for her transfer to a medical floor. We will continue to see her on consult basis until she returns to for the rest of her psychiatric treatment. After this event, I did call the to update him on the patient's cond ition. He relayed that she has had past seizures, and estimates that her last 1 was 2 to 3 years ago. He says in the past, her seizures have always been associated with drinking or withdrawing from alcohol. We do not believe she was drinking prior to admission here, as within the last few months she has been maintaining sobriety. However, she has reported that she was abusing Xanax. Given the review of the PDMP, which shows she last filled filled Xanax 0.5 #90 in July, we did not suspect that she was using that every day. However, now that I was able to speak with the (she did sign a JUDY earlier today) he reported she has been taking Xanax 1 mg that was prescribed to him, and does believe she may have been taking 1 or 2 of those at night. I have relayed this information to the medical team and the consulting neurologist. Nursing staff then called the patient's back to confirm or clarify any history of IV contrast dye reactions. The reported at times, patient had a "uncomfortable warmth" This has not happened every time that she has had IV contrast. He indicated it was not a severe reaction and supported using the IV contrast dye if it were would give better results. This was also passed along to the medical team. Physical Exam Psychiatric MSE below reflects evaluation prior to seizure activity: During our initial encounter, she was alert and oriented x 3. She was briefly disoriented after the seizure, and then this resolved Apperance: appropriately dressed and appropriately groomed improved, hair appeared combed Eye Contact: good eye contact improved Motor Behavior: + tremor; no psychomotor agitation and no psychomotor retardation unsteady gait, using walker Speech: normal rate/rhythm/volume of speech intermittent stuttering. Affect: + anxious affect and + tearful affect Mood: + depressed mood and + anxious mood Thought Process: goal directed thought process and linear/logical thought process less circumstantial than yesterday Thought Content: no preoccupation, no obsessions and no delusions Suicidal Thoughts: denies suicidal thoughts, denies suicidal plan and denies s uicidal intent Homicidal Thoughts: denies homicidal thoughts, denies homicidal plan and denies homicidal intent Hallucinations: no auditory hallucinations and no visual hallucinations does not appear to be responding to internal stimuli Cognition: recent memory grossly intact, remote memory grossly intact and language grossly intact attention improved Estimated Intelligence: consistent with education level Insight: + fair insight Judgment: + fair judgement ( see HPI for description of patient's mental status during the episode, and immediately after). Vital Signs (Past 24 Hours) Last Vital Signs Temp 36.6 C 11/18/24 06:31 Pulse 62 11/18/24 06:32 Resp 16 11/18/24 06:31 BP 123/87 11/18/24 06:32 Pulse Ox 100 11/17/24 06:25 O2 Del Method Room Air 11/17/24 06:25 A physical exam was performed in the ER prior to admission to the unit by Dr. Jada Kahn. I accept that physical as correct/medical clearance for the inpatient physical exam. Results & Data ([facility]) Laboratory Results Laboratory Results - last 24 hr 11/17/24 16:39 Vitamin B12 466 25-OH Vitamin D Total 87.8 Alpha-Tocopherol Pending B- and G-Tocopherol Pending Current Inpatient Medications Current Inpatient Medications: Current Inpatient Medications Acetaminophen (Acetaminophen 325 Mg Tab) 650 mg PO Q4H PRN PRN Reason: Headache or Minor Fever Stop: 12/17/24 06:00 Last Admin: 11/18/24 07:20 Dose: 650 mg Al Hydrox/Mg Hydrox/Simethicone (Aluminum/Magnesium Susp 30 Ml Udc) 30 ml PO Q4H PRN PRN Reason: GI Upset Stop: 12/17/24 06:00 Alprazolam (Alprazolam 0.5 Mg Tablet) 0.5 mg PO HS SCOTT Stop: 12/17/24 21:59 Last Admin: 11/17/24 22:36 Dose: 0.5 mg Ascorbic Acid (Ascorbic Acid 500 Mg Tab) 500 mg PO BID SCOTT Stop: 12/17/24 20:59 Last Admin: 11/17/24 20:34 Dose: Not Given Bismuth Subsalicylate (Bismuth Subsalicylate 262 Mg Chew) 2 tab PO Q30M PRN PRN Reason: Loose Stool/Diarrhea Stop: 12/17/24 06:00 Bupropion HCl (Bupropion Xl 300 Mg Tabcr) 300 mg PO QAM SCOTT Stop: 12/18/24 08:59 Fexofenadine HCl (Fexofenadine Hcl 180 Mg Tab) 180 mg PO BID SCOTT Stop: 12/17/24 20:59 Last Admin: 11/17/24 22:36 Dose: 180 mg Fish Oil ([place]-3 (Purified Fish Oil) 1 Gm Cap) 1 cap PO BID SCOTT Stop: 12/17/24 16:14 Last Admin: 11/17/24 20:34 Dose: Not Given Gabapentin (Gabapentin 300 Mg Cap) 300 mg PO TID SCOTT Stop: 12/17/24 16:14 Last Admin: 11/17/24 22:36 Dose: 300 mg Lactobacillus Acidophilus (Advanced Probiotic 625 Mg Capsule) 1,250 mg PO DAILY SCOTT Stop: 12/17/24 16:14 Last Admin: 11/17/24 18:27 Dose: 1,250 mg Levothyroxine Sodium (Levothyroxine Sodium 75 Mcg Tablet) 75 mcg PO DAILYBB SCOTT Stop: 12/18/24 07:59 Last Admin: 11/18/24 07:19 Dose: 75 mcg Magnesium Hydroxide (Magnesium Hydroxide Susp 30 Ml Udc) 30 ml PO DAILY PRN PRN Reason: Constipation Stop: 12/17/24 06:00 Mirtazapine (Mirtazapine Tab 15 Mg Tab) 15 mg PO HS SCOTT Stop: 12/17/24 21:59 Last Admin: 11/17/24 22:36 Dose: 15 mg Montelukast Sodium (Montelukast Sodium 10 Mg Tablet) 10 mg PO HS SCOTT Stop: 12/17/24 21:59 Last Admin: 11/17/24 22:37 Dose: Not Given Ondansetron HCl (Ondansetron 2 Mg Od Tab) 2 mg PO BID PRN PRN Reason: Nausea Stop: 12/17/24 16:06 Last Admin: 11/17/24 19:22 Dose: 2 mg Sodium Chloride (Sodium Chloride 0.65% Na Soln 45 Ml ([place])) 1 - 2 sprays NA PRN PRN PRN Reason: Nasal Dryness/Congestion Stop: 12/17/24 06:00 Thiamine HCl (Thiamine Hcl 100 Mg Tab) 100 mg PO BID SCOTT Stop: 12/18/24 08:59 Valacyclovir HCl (Valacyclovir Hcl 500 Mg Tablet) 1,000 mg PO DAILY SCOTT Stop: 11/27/24 16:14 Last Admin: 11/17/24 18:26 Dose: 1,000 mg Vitamin B Complex (Vitamin B Complex Tab) 1 tab PO QAM SCOTT Stop: 12/17/24 16:29 Last Admin: 11/17/24 18:27 Dose: 1 tab Mental Health & Subst Abuse Tx Psychiatrist Date Of Appointment With Psychiatric Provider: SHERIN Therapist Name of Therapist: SHERIN Surveyor Mine Name of Surveyor Mine: SHERIN Post Discharge Appointments Primary Care Physician Name Of Family Doctor/PCP: Dr. Arnold Zavala
[2024-11-18] MEDS: THIAMINE HCL 100 MG TAB PO SCH (09:55)
--- NOTE | 2024-11-18 10:03 | Neurology Consultation ---
Date of Consultation November 18, 2024 Assessment & Plan (1) Balance problem: (2) Tremor: (3) Ataxia: (4) Memory deficits: (5) Neurological Lyme disease: (6) Mood disorder: (7) Hypothyroidism: Plan This patient is complicated from a neurologic and psychiatric standpoint. Honestly I am not sure how much of her symptoms and examination presentation is psychiatric versus neurologic. Nevertheless she seems to have a gait disturbance and has fallen in the past. Her event November 16 seem to have been some syncope secondary to lightheadedness with some closed head trauma occipitally and possible loss of consciousness briefly. She has had a headache and some blurry vision since. Certainly, this is consistent with a concussion. CT scan of the head was unremarkable. The patient has unusual tremor and ataxia which is variable (inconsistent). Cerebellar dysfunction could be present given her longstanding heavy alcohol use history. In addition, she could have a sensory ataxia from neuropathy (gait worse with eyes closed compared to eyes open) which could also stem from chronic alcohol use. Patient presents with mild memory deficits. I cannot be sure this is an early dementia versus pseudodementia from her mood Patient has presumed hypothyroidism with an elevated TSH There is a longstanding history of symptoms which she attributes to neurologic Lyme disease. I certainly cannot exclude a chronic central nervous system Lyme disease (or other). She states that she had 2 strokes in the past but I am not sure these were proven. She states that MRIs in the past have shown "spots". She would be at risk for small vessel ischemic disease given her history of hypertension. 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 Recommendations: 1. MRI of the brain with and without contrast, attention to the cerebellum. 2. MRI of the cervical spine with and without contrast. I am concerned that she could have a myelopathy creating balance and other issues. 3. Laboratory studies to include ESR, CRP, copper, zinc, Lyme Western blot, B12, B1, vitamin E, vitamin D, EDMUND, RPR, hemoglobin A1c 4. LP under fluoroscopy to include [employer] WORKER Lyme studies as well as special protein studies, if the patient is agreeable 5. I would consider EMG and nerve conduction studies to evaluate for neuropathy, as an outpatient (I cannot do this study in the hospital) 6. Control blood pressure as you are doing 7.. I will follow Overall, I spent a total of 90 minutes with this case including review of records, review of CT films, direct evaluation of the patient at bedside, report generation, and discussion of the case with the patient and RN at bedside as well as Dr. Lentz including differential diagnosis and treatment options. History of Present Illness Reason for Consultation: Patient is a 54-year-old, who was asked to see at the request of Dr. Lentz, for neurologic consultation regarding multiple symptoms and question of [employer] Lyme disease. Patient gives a somewhat complicated history. She feels that her problem started about 12 years ago when she was bit by a tick on her head. She started having a number of symptoms over the years and has seen upwards to "20" neurologist at various institutions. Initially she was seen at [facility] and LP was negative for MS but Lyme was not tested. She is quite upset about this. She has had multiple MRIs over the years apparently all of which have been remarkable for "spots". I do not have any reports or films to review. Over time she has had short-term memory issues (long-term spared) for at least 5 years. This is somewhat progressive over time. She has had balance issues for the last 12 years and can fall. This has been getting worse over the last year as well. The patient has had stuttering for the last 12 years that she never had before and for many years she has had twitches of her muscles and tremors of a variable nature. Her gait feels unsteady and she can get lightheaded with looking up. She feels that her speech has been somewhat slurred as well. 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 12 years ago she had courses of p.o. doxycycline and has never had any IV antibiotics. November 16, the patient was very lightheaded, passed out when standing and hit the back of her head. She had loss of consciousness for seconds to few minutes (timeframe not verifiable at this point). She has had some blurry vision bilaterally since and had a significant bioccipital sore and continuous headache that radiates to the top of her head. There is no nausea or vomiting. The patient has a history of major depression and had an attempted hanging in 2022. She prefers natural/alternative medications as compared to traditional medication. She sees [facility] at [facility]. The patient has a history of severe alcohol use and abuse starting about 12 years ago and ending 3 months ago. At the end she had unfortunately had a DUI and was drinking as much is 3 cases of beer per week About 3 months ago her from her and she has had very little p.o. intake (some fruit and liquids) since. She has lost considerable weight. She is significantly constipated. Typically she is in the upper 150s but now is down to 119 pounds. Interestingly, prior to her children, in her early 20s, she weighed approximately 100 pounds. The patient states that she had a history of 2 strokes in the past. 1 was 11 y ears ago associated with a right facial droop but no one prove this with MRI. She had some right sided symptoms hospitalized in [place] with her hanging attempt and was told she had a small stroke (again I do not have these records). She arrived at the emergency room on November 16 at 2347 with a temperature of 36.8, pulse 83 and regular, respiratory rate 20, blood pressure 149/102, and O2 saturation 100%. She had no focal neurologic deficits on exam. CBC showed very mild anemia. CHEM profile and liver profile were unremarkable. TSH was elevated at 6.957, urinalysis was unremarkable although she had positive benzodiazepine and marijuana (she has medical marijuana). Attending Physician: Kathy Lentz, Allergies Allergy/AdvReac Type Severity Reaction Status Date / Time amoxicillin Allergy Severe HIVES Verified 11/17/24 01:58 clavulanic acid Allergy Severe HIVES Verified 11/17/24 01:58 Home Medications Medication Instructions Recorded Confirmed Type alprazolam 0.5 mg tablet (Xanax) 0.5 mg PO DAILY PRN Anxiety 08/25/21 11/17/24 History montelukast 10 mg tablet 10 mg PO QPM 08/25/21 11/17/24 History (Singulair) valacyclovir 1 gram tablet 1,000 mg PO QDL 08/25/21 11/17/24 History medical marjuana 1 dose inhalation DIRECTED PRN 05/20/23 11/17/24 History NEEDED B-complex with vitamin C 1 tab PO DAILY 11/17/24 11/17/24 History Butyrate 500 mg PO BID 11/17/24 11/17/24 History Lam 4.2 mg PO BID 11/17/24 11/17/24 History Magnesium-Theor 288 mg PO QAM 11/17/24 11/17/24 History Pancreatic Enzyme Tabs 500 mg PO BID 11/17/24 11/17/24 History Piceid Resveratrol 1 tab PO DAILY 11/17/24 11/17/24 History Pure Encap. Probiotic 50 billion cells PO BID 11/17/24 11/17/24 History S.boulardii 5 billion cell-yeast 2 cap PO BID 11/17/24 11/17/24 History 200 mg capsule, delayed release ascorbic acid (vitamin C) 1,000 mg 1,000 mg PO BID 11/17/24 11/17/24 History tablet (Vitamin C) ashwagandha extract 500 mg capsule 500 mg PO QAM 11/17/24 11/17/24 History berberine-herbal drugs capsule 1 cap PO QAM 11/17/24 11/17/24 History bupropion HCl 300 mg 24 hr tablet, 300 mg PO DAILY 11/17/24 11/17/24 History extended release (Wellbutrin XL) cholecalciferol (vitamin D3) 125 125 mcg PO BID 11/17/24 11/17/24 History mcg (5,000 unit) tablet (Vitamin D3) coQ10 (ubiquinol) 100 mg capsule 300 mg PO QAM 11/17/24 11/17/24 History curcumin-phosphatidylcholine 500 500 mg PO QAM 11/17/24 11/17/24 History mg capsule famotidine 40 mg tablet 40 mg PO BID 11/17/24 11/17/24 History fexofenadine 180 mg tablet 180 mg PO BID 11/17/24 11/17/24 History gabapentin 300 mg capsule 300 mg PO TID 11/17/24 11/17/24 History (Neurontin) hydroxyzine HCl 50 mg tablet 150 mg PO HS 11/17/24 11/17/24 History levothyroxine 25 mcg tablet 25 mcg PO DAILY 11/17/24 11/17/24 History niacinamide 500 mg tablet 500 mg PO DAILY 11/17/24 11/17/24 History omega-3 fatty acids 1,250 mg 1,250 mg PO BID 11/17/24 11/17/24 History capsule soybean, fermented 50 mg capsule 100 mg PO QPM 11/17/24 11/17/24 History (Nattokinase) vitamin J-epmedtclm-mxabgkgfzlyul, 1 tab PO BID 11/17/24 11/17/24 History citrus 625 mg tablet (Quercetin Complex) vitamin E 180 mg/2 mL oral drops 180 mg PO QAM 11/17/24 11/17/24 History zinc gluconate 30 mg tablet 30 mg PO DAILY 11/17/24 11/17/24 History Patient History Medical History (Updated 11/18/24 @ 09:49 by Len Casarez MD) Weak urinary stream Vaginal discharge Urinary symptom or sign Urinary incontinence Unspecified disturbances of skin sensation Spells of trembling Recurrent UTI Recurrent loss, currently Muscle weakness Leg weakness, bilateral Incomplete bladder emptying Hyperlipidemia Hematuria Gait disorder Fever, unknown origin Female pelvic pain Esophageal reflux Cognitive disorder MIGNON III (cervical intraepithelial neoplasia III) Breast mass B12 deficiency Surgical History (Updated 11/18/24 @ 09:42 by Len Casarez MD) H/O lumpectomy S/P hysterectomy S/P cholecystectomy S/P tonsillectomy Family History Grandmother (Maternal) Ovarian cancer Denies family history of Prostate cancer Myocardial infarction Breast cancer Colorectal cancer Social History (Updated 11/18/24 @ 10:03 by Len Casarez MD) Smoking Status: Never smoker Second Hand Exposure: No; Do You Dip or Chew Tobacco: No; Hx Alcohol Use: No Hx Substance Use: No Preferred Language: [place] Communication Ability: Effective Shingle Grader Required: No Beliefs That Will Affect Care: None marital status: Current Living Situation: Spouse current occupational status: disabled 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 How many Children do You have: 2 Feels Safe at Home: Yes Gender Identity: Female Assistive Devices: Glasses Review of Systems Constitutional: + weakness, + anorexia and + weight loss ; no fever and no fatigue Eyes: + worsening vision (Blurry); no diplopia and no eye pain Ear, Nose, Mouth, Throat: no ear pain, no tinnitus, no hearing loss, no dizziness, no snoring, no hoarseness and no dysphagia Respiratory: no cough and no dyspnea Cardiovascular: no chest pain, no palpitations and no lightheadedness Gastrointestinal: no abdominal pain, no nausea and no vomiting Genitourinary: no dysuria, no urinary frequency and no urinary incontinence Musculoskeletal: + back pain; no neck pain, no radicular pain, no joint pain and no myalgia Integumentary: no rash and no lesions Neurologic: + gait abnormality, + tremor(s), + abnor mal movements, + headache(s) and + memory loss; no localized weakness, no generalized weakness, no tingling, no numbness, no abnormal speech and no confusion Psychiatric: + depression and + anxiety; no irritabil ity, no difficulty concentrating, no confusion and no hallucinations Endocrine: no fatigue and no flushing Hematologic / Lymphatic: no easy bleeding and no easy bruising Allergy / Immunological: no urticaria and no problem reported Exam (Neuro) Physical Exam: The patient is right-handed. The patient is awake, alert, and attentive. Speech is reason without any obvious aphasia or dysarthria. Mentation and thought processes are intact to conversation, with full orientation and normal fund of knowledge. Mood and affect are normal and appropriate. Appearance and grooming are normal. Long- term memory seems intact to conversation and short-term is reasonable. Pupils are 4 mm bilaterally and reactive to light. Extraocular eye muscles are intact without nystagmus. Visual acuity and visual lozano seem normal grossly to confrontation. There are no deficits to sensation in the face in all 3 distributions of the fifth cranial nerve bilaterally. Corneal reflexes are positive bilaterally. Facial strength and symmetry was normal bilaterally. Hearing seems intact grossly to voice and finger rub bilaterally. Palate moves well without asymmetry. There is normal sternocleidomastoid and trapezius strength bilaterally. Tongue is midline with good strength bilaterally. Neck has a full range of motion without discomfort. There are no cervical bruits bilaterally. There are no cranial or ocular bruits. Heart is without murmur. There is a regular rhythm and rate. Cervical spinous processes and paraspinal muscles are nontender to palpation except at the occipital cervical junction where she has some tenderness without mass or lump. Thoracic and lumbar spine are nontender to palpation. Gait is mildly wide-based and cautious but has positive arm swing. Turns are unstable and she takes a step to the right at times. Stands with feet together is poor and she tends to go backwards. Also closing her eyes makes her stance deteriorated as well. She cannot tandem walk. With outstretched arms there is no drift. There are no resting tremors. There is very mild ataxia with finger to nose testing, almost like a course action tremor also.. There is mildly decreased facility in the hands. Ozmi-ax-vafl testing seems normal bilaterally. Patient has some twitches and jerks of a variable nature in her trunk and limbs somewhat reminiscent of myoclonic jerks but they seem to wax and wane based on how upset the patient Motor strength is 5/5 diffusely in the arms bilaterally including deltoids, biceps, triceps, brachioradialis, wrist flexors and extensors, scientific software engineer, and intrinsic hand muscles. Motor strength is 5/5 diffusely in the legs bilaterally including hip flexors, quadriceps, hamstrings, gastrocnemius, tibialis anterior, tibialis posterior, and Peroneii muscles bilaterally. Toe extensors are normal and there is good bulk in the extensor digitorum brevis muscles bilaterally. The limbs have good tone without rigidity or spasticity. There is no atrophy noted in the muscles. Muscle bulk is normal, there is no tenderness to palpation, no myotonia to percussion, and no fasciculations seen. Sensory examination is intact to touch and pin throughout all 4 limbs diffusely. Reflexes are 2/4 in the biceps, triceps, brachioradialis, quadriceps, and Achilles tendons bilaterally. Toes are downgoing with plantar stimulation bilaterally. Peripheral pulses are present and of normal quality distally in all 4 limbs. There is no peripheral edema noted in the limbs. Results & Data Vital Signs (Past 12 Hours) Vital Signs Temp Pulse Resp BP 11/18/24 06:32 62 123/87 11/18/24 06:31 36.6 C 64 16 107/69 PG Care Time/CCT Total # of Minutes Spent Total Time Spent with Patient: Total time spent is greater than 50% in coordination of care (as documented) at patient's floor/unit and/or counseling patient: Coding Level of Care Code 90353 INT INP/OBS CARE 3/75MIN Diagnoses Balance problem R26.89 Tremor R25.1 Ataxia R27.0 Memory deficits R41.3 Neurological Lyme disease A69.20 Mood disorder F39 Hypothyroidism E03.9 Time Spent (min) 90
[2024-11-18 14:02] LABS: Hemoglobin A1C 5.3 % (4.5-5.6)
[2024-11-18] MEDS ORDERED: ONDANSETRON 2 MG OD TAB PO ONE (14:36)
[2024-11-18 15:13] VITALS: PULSE 61
--- NOTE | 2024-11-18 18:13 | Discharge Summary ---
Date of Service November 18, 2024 History of Present Illness Pt self-presented to the ED for evaluation at the prompting of her family, after she appeared to be experiencing stroke like symptoms days after she lost consciousness and fell at home, hitting her head. She notably did not seek treatment immediately after the fall, but ultimately did at the behest of her family. On the day of presentation to the ED, she had reported slurred speech and possibly vision disturbance. In the ED, CT of the head and cervical spine were obtained and deemed WNL. She revealed while there that she had been more depressed and not eating, ever since she and her 3 months ago, leading to an impressive 40-60 lb weight loss in that time. She reported the weight loss was not intentional. She denied SI. The ED administered IVF and petitioned the 302 for poor self-care - which expires on 11/22/24 at around 3am. Upon arrival to the unit, pt was noted to have an unsteady gait and was given a walker. Pt revealed a history of both a suicide attempt and past psychiatric hospitalization in 2022. She also reported hx of alcohol abuse, previously drinking up to 3 cases of beer weekly. She had a DUI and stopped drinking 3 months ago. She also reported possible AVH chronically - hearing music, and seeing fleeting images out of the corner of her eye. She did attempt to eat breakfast, but then reported nausea. She was fairly isolative to her room otherwise. Today, she acknowledges "I've been heartbroken" due to marital issues. She reports infidelity prompted the separation, and says they are in marriage counseling. She also reports that she chronically has a poor appetite, but was previously able to still eat regularly, up until becoming more depressed. Over the past several months, she would drink Vitamin water and eat only fruit, but no dairy or protein. She's also been quite inconsistent in taking her daily medication, including levothyroxine. Repeatedly said she was "too heartbroken" to eat. Stated she had no goal or purpose to refusing to eat. Indicated she was aware that her poor intake was affecting her body - was aware of rapidly declining weight, loss of hair and weakness. Family had also been voicing their concern. However, she continued to eat minimally until her son offered to visit each weekend if she started eating again. She says she had planned recently to "ease myself back in" to eating, but then passed out, fell and hit her head at home last week, which slowed her progress. She spent a long time detailing her history of chronic neurologic symptoms. 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 She says she's seen 20+ neurologists, but does not have a neurologist now. She finds that a combination of nutritional supplements, ozone treatments and red light therapy have helped the most. She did lapse in those therapies over the past 3 months as well. Symptoms she attributes to her Lyme diagnosis include: poor short term memory, tremor, stutter, slurred words, lack of sensation in her stomach and bladder (ie - cannot tell when she is hungry or needs to void) but no incontinence, unsteady gait with falls, sensitivity to bright light and "busy patterns", and dysmetria ("I can't find things when I reach for them"). She also attributes the visual and auditory disturbances to "my neurologic condition". Notably, pt has suspiciousness of traditional medicine, and favors alternative and "natural" treatments. This belief appears to be shared by family members. She also has hesitancy regarding psychiatric medications, due to an adverse reaction (to a medication she cannot recall) when previously hospitalized. Physical Exam Vital Signs (Past 24 Hours) Last Vital Signs Temp 36.6 C 11/18/24 15:11 Pulse 61 11/18/24 15:11 Resp 16 11/18/24 15:11 BP 123/87 11/18/24 15:11 Pulse Ox 100 11/18/24 15:11 O2 Del Method Room Air 11/17/24 06:25 A physical exam was performed in the ER prior to admission to the unit by Dr. Jada Kahn. I accept that physical as correct/medical clearance for the inpatient physical exam. Principal Diagnosis Major depressive disorder recurrent, with possible psychotic features acute seizure episode possible neurological Lyme Psychiatric Data patient was admitted on 301. She was starting to eat. She was seen by neurology for chronic neurological symptoms including unsteady gait, tremor, speech changes, and more. Workup was initiated. During encounter today, patient had a sudden onset of seizure activity. Code bran was called. She did recover and was back to baseline prior to discharge. She is being discharged and admitted to the hospitalist service for further workup and monitoring. Day of Discharge Assessment Patient remains depressed but denies suicidal ideation. She has been starting to attend to her ADLs. She has been discharged due to seizure activity today. She has been admitted to the hospital service, and psychiatry will follow along as a nutrition consultant for now. She may return once medical workup is completed and she remained stable. Transition of Care Transition Of Care Record: was reviewed with the patient Advance Directives Advance Directives Information Provided: Yes Advance Directives: No Mental Health Advance Directive: No Advance Directives on File: No Living Will: No Power of Warp Starter: No Advance Directives Reason:: Declines as Mental Health Visit. Suicide Risk Level Suicide Risk Level Comments: no SI prior to admission, none reported here. Risk Factors Assessment Male: No : Yes Do You Have Access To A Gun?: No Health Problems: Yes Mental Health Diagnoses: Yes Substance Use Disorders: Yes Previous Attempt: Yes Family History of Suicide: No Previous Psychiatric Hospitalization: Yes Hopelessness: No Protective Factors Assessment : Yes ( But currently ) Employed: No Supportive Family: Yes Total Time Total Time Spent: Greater Than 30 Minutes Discharge Data Consultations 11/17/24 16:19 Consult Neurology Routine Lab Results 11/17/24 11/17/24 11/17/24 00:05 01:35 03:30 WBC 6.45 RBC 3.89 L Hgb 11.0 L Hct 33.8 L MCV 86.9 MCH 28.3 MCHC 32.5 RDW Std Deviation 50.8 H RDW Coeff of [place] 16.2 H Plt Count 317 MPV 10.6 Immature Gran % (Auto) 0.3 Neut % (Auto) 42.6 Lymph % (Auto) 46.5 [place] % (Auto) 8.4 Eos % (Auto) 1.4 Baso % (Auto) 0.8 Neut # (Auto) 2.75 Lymph # (Auto) 3.00 [place] # (Auto) 0.54 Eos # (Auto) 0.09 Baso # (Auto) 0.05 Immature Gran # (Auto) 0.02 ESR Sodium 140 Potassium 4.1 Chloride 104 Carbon Dioxide 27 Anion Gap 9 BUN 11 Creatinine 0.97 Est Cr Clr Drug Dosing 54.2 eGFR 69.01 BUN/Creatinine Ratio 11.3 Glucose 83 POC Glucose Estimat Average Glucose Hemoglobin A1c Calcium 9.8 Phosphorus 3.3 Magnesium 1.6 L Total Bilirubin 0.5 AST 22 ALT 13 Alkaline Phosphatase 77 C-Reactive Protein Total Protein 7.1 Albumin 4.2 Globulin 2.9 Albumin/Globulin Ratio 1.4 Vitamin B12 25-OH Vitamin D Total TSH 6.957 H Free T4 1.12 Urine Color Yellow Urine Appearance Clear Urine pH 7.5 Ur Specific [place] 1.004 Urine Protein Negative Urine Glucose (UA) Negative Urine Ketones Negative Urine Blood Negative Urine Nitrite Negative Urine Bilirubin Negative Urine Urobilinogen Negative Ur Leukocyte Esterase Negative Urine Comment Salicylates < 3.0 L Urine Opiates Screen Neg Ur Methadone, Qual Neg Urine Fentanyl Screen Neg Acetaminophen < 3 L Urine Barbiturates Neg Ur Phencyclidine (PCP) Neg U Amphetamin/Meth Scrn Neg MDMA (Ecstasy) Screen Pos H U Benzodiazepines Scrn Pos H Ur Cocaine Metabolite Neg U Marijuana (THC) Screen Pos H Ethyl Alcohol mg/dL < 10.0 Treponema pallidum Ab SARS-CoV-2, RNA, NAAT NEGATIVE 11/17/24 11/18/24 11/18/24 16:39 13:20 14:29 WBC RBC Hgb Hct MCV MCH MCHC RDW Std Deviation RDW Coeff of [place] Plt Count MPV Immature Gran % (Auto) Neut % (Auto) Lymph % (Auto) [place] % (Auto) Eos % (Auto) Baso % (Auto) Neut # (Auto) Lymph # (Auto) [place] # (Auto) Eos # (Auto) Baso # (Auto) Immature Gran # (Auto) ESR 39 H Sodium Potassium Chloride Carbon Dioxide Anion Gap BUN Creatinine Est Cr Clr Drug Dosing eGFR BUN/Creatinine Ratio Glucose POC Glucose 121 H Estimat Average Glucose 105 Hemoglobin A1c 5.3 Calcium Phosphorus Magnesium Total Bilirubin AST ALT Alkaline Phosphatase C-Reactive Protein < 0.50 Total Protein Albumin Globulin Albumin/Globulin Ratio Vitamin B12 466 25-OH Vitamin D Total 87.8 TSH Free T4 Urine Color Urine Appearance Urine pH Ur Specific [place] Urine Protein Urine Glucose (UA) Urine Ketones Urine Blood Urine Nitrite Urine Bilirubin Urine Urobilinogen Ur Leukocyte Esterase Urine Comment Salicylates Urine Opiates Screen Ur Methadone, Qual Urine Fentanyl Screen Acetaminophen Urine Barbiturates Ur Phencyclidine (PCP) U Amphetamin/Meth Scrn MDMA (Ecstasy) Screen U Benzodiazepines Scrn Ur Cocaine Metabolite U Marijuana (THC) Screen Ethyl Alcohol mg/dL Treponema pallidum Ab Negative SARS-CoV-2, RNA, NAAT Hospital Course (1) Major depressive disorder with psychotic features: (2) Hypothyroidism: (3) Balance problem: (4) History of recent fall: (5) Neurological Lyme disease: (6) Rapid weight loss: Plan 11/18/24: - Labs recommended by neurology were ordered and drawn (ESR hemoglobin A1c, CRP, EDMUND, RPR, Lyme Western blot. Does not look like we can do a B1 level. Vitamin EE, D and B12 were already ordered from yesterday. I also added a heavy metal test per her report of possible exposure to heavy metals at home. She was also in our discussion asking about mold testing, and so I will leave this up to the medical team to decide. - ordered the MRI of the brain and cervical spine with and without contrast, b ut not yet obtained - patient was discharged from our unit, and admitted to the hospitalist service for monitoring post seizure. - I updated the patient's , medical team and neurology. 11/17/24: -I did d/c the high dose vistaril and the famotidine due to the prolonged QTc. I also ordered a repeat EKG for tomorrow. I did not order any atypical supplements that are not on our formulary, and I am going to obtain vitamin A, D, and E levels before resuming those since they are fat soluble and can cause toxicity. B complex is OK to continue, but I did order a b12 level as well to ascertain whether she remains deficient (which can contribute to above symptoms). -thiamine 100mg BID x 7 days to prevent refeeding syndrome, as recommended by dietitian. -I discussed the risk, benefits, and alternative to adding Remeron for depression, anxiety, sleep and appetite. She expressed hesitation, and wanted to discuss with her first. She did call him, and ultimately agreed to take the medication. Started 15mg HS. -If Remeron is effective, we could decrease or d/c the Wellbutrin eventually. Continue at home dose for now. -I restarted Xanax at presumed home dose of 0.5mg HS. -Restarted home meds - levothyroxine, fexofendadine, montelukast, gabapentin, omega 3 and probiotic. - The patient was admitted to the [facility] ([facility] mental health unit) on q15 min checks (behavioral with suicide precautions) for safety. The patient will participate in group, recreational, and milieu therapies and will be offered additional individual and family sessions as clinically appropriate. Mental Health & Subst Abuse Tx Psychiatrist Date Of Appointment With Psychiatric Provider: SHERIN Therapist Name of Therapist: SHERIN Unloader Operator Name of Unloader Operator: SHERIN Post Discharge Appointments Primary Care Physician Name Of Family Doctor/PCP: Dr. Arnold Zavala Discharge Plan Discharge Items Patient Disposition: Transfer Acute Care Hospital Reason For Visit: MAJOR DEPRESSION WITH PSYCHOTIC FEATURES Discharge Diagnosis: Acute seizure MDDR Condition on Discharge: Fair Activity: As commented below Non-emergency contact: Hospitalist Call non-emergency contact if: you have any medication questions and your symptoms worsen Follow-up/Referrals: Arnold Zavala [Primary Care Provider] - Diet: Regular Addtl Attending Provider Instructions: Pt had a seizure today while admitted to the psychiatric service. She is being discharged and admitted to the medical service for monitoring s/p seizure. Pending Studies at Discharge: Yes Stand-Alone Forms: [facility] Skilled Items Patient informed of condition?: Yes DNR: No Discharge Level of Care: Other Communicable Disease: No Discharge Prognosis: Deteriorating Lines: None Urinary Catheter: No Medications and DC Order Prescriptions: Continued valacyclovir 1 gram tablet 1,000 mg PO QDL montelukast [Singulair] 10 mg tablet 10 mg PO QPM alprazolam [Xanax] 0.5 mg tablet 0.5 mg PO DAILY PRN (Reason: Anxiety) medical marjuana 1 dose inhalation DIRECTED PRN (Reason: NEEDED) ascorbic acid (vitamin C) [Vitamin C] 1,000 mg Tablet 1,000 mg PO BID famotidine 40 mg Tablet 40 mg PO BID fexofenadine 180 mg Tablet 180 mg PO BID levothyroxine 25 mcg Tablet 25 mcg PO DAILY niacinamide 500 mg Tablet 500 mg PO DAILY B-complex with vitamin C Tablet 1 tab PO DAILY omega-3 fatty acids 1,250 mg Capsule 1,250 mg PO BID cholecalciferol (vitamin D3) [Vitamin D3] 125 mcg (5,000 unit) Tablet 125 mcg PO BID coQ10 (ubiquinol) 100 mg Capsule 300 mg PO QAM vitamin E 180 mg/2 mL Drops 180 mg PO QAM Quercetin Complex 625 mg Tablet 1 tab PO BID Magnesium-Theor 288 mg PO QAM Pancreatic Enzyme Tabs 500 mg PO BID zinc gluconate 30 mg Tablet 30 mg PO DAILY Nattokinase 50 mg Capsule 100 mg PO QPM curcumin-phosphatidylcholine 500 mg Capsule 500 mg PO QAM Saccharomyces boulardii-yeast 5 billion cell- 200 mg Capsule,Delayed Release(Dr/Ec) 2 cap PO BID ashwagandha extract 500 mg Capsule 500 mg PO QAM berberine-herbal drugs Capsule 1 cap PO QAM Rx Instructions: 550 MG Butyrate 500 mg PO BID Lam 4.2 mg PO BID Piceid Resveratrol 1 tab PO DAILY Pure Encap. Probiotic 50 billion cells PO BID hydroxyzine HCl 50 mg tablet 150 mg PO HS gabapentin [Neurontin] 300 mg capsule 300 mg PO TID bupropion HCl [Wellbutrin XL] 300 mg tablet extended release 24 hr 300 mg PO DAILY Discharge Orders: Discharge Order (Routine); Ordered 11/18/24 Ordered By: Kathy Lentz Admission Data Admit Date/Time: 11/17/24 05:36 Attending Provider: Kathy Lentz Admit Provider: Kathy Lentz Primary Care Provider: Arnold Zavala Other Providers: Damián Gaona; Len Casarez; Joann Duran; Marcela Prieto; Doc Sanders; Jennifer Su Other Interventions: Discharge Summary Assessment (RN) Last Done: 11/18/24 15:11 Coding Level of Care Code 52594 D/C day mgmt > 30 min Diagnoses Major depressive disorder with psychotic features F32.3 Hypothyroidism E03.9 Balance problem R26.89 History of recent fall Z91.81 Neurological Lyme disease A69.20 Rapid weight loss R63.4
[2024-11-22 10:52] LABS: 7-Aminoclonaz, Confirm NEGATIVE ng/mL (<25); Hydro-Alp Ur, GC/MS 301 ng/mL (<25); Hydroxyethylflurazepam, Conf NEGATIVE ng/mL (<50); Hydroxymidazolam Ur, GC/MS NEGATIVE ng/mL (<50); Lorazepam, Ur GC/MS 86 ng/mL (<50); MDA negative; MDEA negative; MDMA (Ecstasy) Urine, Confirm negative; Marijuana Quant, GCMS Urine 78 ng/mL (<5); Nordiazepam, Confirm NEGATIVE ng/mL (<50); Oxazepam Ur, GC/MS NEGATIVE ng/mL (<50); Temazepam, Confirm NEGATIVE ng/mL (<50)
[2024-11-22 21:46] LABS: Anti Nuclear Antibody Screen NEGATIVE (NEGATIVE); Copper, Serum 123 mcg/dL (70-175)
[2024-11-24 00:23] LABS: Lyme Antibodies, WB IgG NEGATIVE (NEGATIVE); Lyme Antibodies, WB IgM NEGATIVE (NEGATIVE)
[2024-11-24 10:42] LABS: Vitamin E Beta-Gam Tocopherol <1.0 mg/L (<=4.3)
== END 2024-11-18 14:46 | disposition short-term general hospital (02) | DRG 885 ==
LOC: ED 23:40 → 3S 11-17 05:36

== ENCOUNTER 2024-11-18 14:57 | Observation (INO) ==
[2024-11-18] MEDS ORDERED: ALUMINUM/MAGNESIUM SUSP 30 ML UDC PO PRN (15:50)
--- NOTE | 2024-11-18 15:54 | History & Physical Report ---
Date of Service November 18, 2024 Assessment & Plan (1) Seizure: Plan: appears to have been self limited, given 1mg Ativan in her post-ictal state will defer keppra load seizure precautions given chronic benzo use at unknown exact dose - will increase HS xanax to 1.5mg with plan to taper continue to monitor on telemetry if no recurrence - return to U appropriate Plan PT IS A 302 HOLD - MAY NOT LEAVE AMA FENGI: regular diet Code status: full DVT prophylaxis: low risk Disposition: PCU with 1:1 monitoring given 302 status Admission and Anticipated Discharge Date Admission Date: November 18, 2024 History of Present Illness Primary Care Provider: Arnold Zavala Code bran was called on the BHU on 11/18/24 for seizure like activity. The patient was talking to the psychiatrist when she rolled on her side and began shaking for about 30 seconds. Reportedly appeared unconscious for a moment and then began to come to. Per the psychiatrist, the patient seemed more confused after the episode. The patient had no recollection of the event. Pt then had an episode of vomiting. On evaluation the patient was significantly hypertensive, NSR on monitor. Glucose was WNL. Decision was made to transfer to medical floor for further evaluation and monitoring. She is a 302 hold Pt consented to contact with her to discuss the event. He states that she has been taking his xanax 1mg tabs prior to admission. She does have seizure history in the context of EtOH withdraw but last was 2-3 years ago. Allergies Allergy/AdvReac Type Severity Reaction Status Date / Time amoxicillin Allergy Severe HIVES Verified 11/17/24 01:58 clavulanic acid Allergy Severe HIVES Verified 11/17/24 01:58 Home Medications Medication Instructions Recorded Confirmed Type alprazolam 0.5 mg tablet (Xanax) 0.5 mg PO DAILY PRN Anxiety 08/25/21 11/17/24 History montelukast 10 mg tablet 10 mg PO QPM 08/25/21 11/17/24 History (Singulair) valacyclovir 1 gram tablet 1,000 mg PO QDL 08/25/21 11/17/24 History medical marjuana 1 dose inhalation DIRECTED PRN 05/20/23 11/17/24 History NEEDED B-complex with vitamin C 1 tab PO DAILY 11/17/24 11/17/24 History Butyrate 500 mg PO BID 11/17/24 11/17/24 History Lam 4.2 mg PO BID 11/17/24 11/17/24 History Magnesium-Theor 288 mg PO QAM 11/17/24 11/17/24 History Pancreatic Enzyme Tabs 500 mg PO BID 11/17/24 11/17/24 History Piceid Resveratrol 1 tab PO DAILY 11/17/24 11/17/24 History Pure Encap. Probiotic 50 billion cells PO BID 11/17/24 11/17/24 History S.boulardii 5 billion cell-yeast 2 cap PO BID 11/17/24 11/17/24 History 200 mg capsule, delayed release ascorbic acid (vitamin C) 1,000 mg 1,000 mg PO BID 11/17/24 11/17/24 History tablet (Vitamin C) ashwagandha extract 500 mg capsule 500 mg PO QAM 11/17/24 11/17/24 History berberine-herbal drugs capsule 1 cap PO QAM 11/17/24 11/17/24 History bupropion HCl 300 mg 24 hr tablet, 300 mg PO DAILY 11/17/24 11/17/24 History extended release (Wellbutrin XL) cholecalciferol (vitamin D3) 125 125 mcg PO BID 11/17/24 11/17/24 History mcg (5,000 unit) tablet (Vitamin D3) coQ10 (ubiquinol) 100 mg capsule 300 mg PO QAM 11/17/24 11/17/24 History curcumin-phosphatidylcholine 500 500 mg PO QAM 11/17/24 11/17/24 History mg capsule famotidine 40 mg tablet 40 mg PO BID 11/17/24 11/17/24 History fexofenadine 180 mg tablet 180 mg PO BID 11/17/24 11/17/24 History gabapentin 300 mg capsule 300 mg PO TID 11/17/24 11/17/24 History (Neurontin) hydroxyzine HCl 50 mg tablet 150 mg PO HS 11/17/24 11/17/24 History levothyroxine 25 mcg tablet 25 mcg PO DAILY 11/17/24 11/17/24 History niacinamide 500 mg tablet 500 mg PO DAILY 11/17/24 11/17/24 History omega-3 fatty acids 1,250 mg 1,250 mg PO BID 11/17/24 11/17/24 History capsule soybean, fermented 50 mg capsule 100 mg PO QPM 11/17/24 11/17/24 History (Nattokinase) vitamin Q-sfpmprduf-hoydrmozhkzin, 1 tab PO BID 11/17/24 11/17/24 History citrus 625 mg tablet (Quercetin Complex) vitamin E 180 mg/2 mL oral drops 180 mg PO QAM 11/17/24 11/17/24 History zinc gluconate 30 mg tablet 30 mg PO DAILY 11/17/24 11/17/24 History Past Med/Surg History Problem List (Updated 11/18/24 @ 16:35 by Juan Daniel Paige DO) Seizure Memory deficits Ataxia Tremor Hypertension Neurological Lyme disease History of recent fall Major depressive disorder with psychotic features Hypothyroidism Balance problem Rapid weight loss (Acute) Mood disorder (Acute) Well woman exam with routine gynecological exam Medical History (Updated 11/18/24 @ 16:35 by Juan Daniel Paige DO) Weak urinary stream Vaginal discharge Urinary symptom or sign Urinary incontinence Unspecified disturbances of skin sensation Spells of trembling Recurrent UTI Recurrent loss, currently Muscle weakness Leg weakness, bilateral Incomplete bladder emptying Hyperlipidemia Hematuria Gait disorder Fever, unknown origin Female pelvic pain Esophageal reflux Cognitive disorder MIGNON III (cervical intraepithelial neoplasia III) Breast mass B12 deficiency Surgical History (Updated 11/18/24 @ 09:42 by Lne Casarez MD) H/O lumpectomy S/P hysterectomy S/P cholecystectomy S/P tonsillectomy Family History Grandmother (Maternal) Ovarian cancer Denies family history of Prostate cancer Myocardial infarction Breast cancer Colorectal cancer Social History (Updated 11/18/24 @ 10:03 by Len Casarez MD) Smoking Status: Never smoker Second Hand Exposure: No; Do You Dip or Chew Tobacco: No; Hx Alcohol Use: No (quit drinking 3 months ago) Hx Substance Use: Yes Last Used Substance: Unknown Preferred Language: Macedonian Communication Ability: Effective Granite Cutter Apprentice Required: No Beliefs That Will Affect Care: Cultural Cultural Beliefs: no blood transfusions marital status: Current Living Situation: Family Current Living Situation Comment: lives with son Rick current occupational status: disabled 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 How many Children do You have: 2 Other Information That Helps Us Care for You: Yes Feels Safe at Home: Yes Safety Concerns: Feels Safe At This Time Gender Identity: Female Assistive Devices: Walker Review of Systems Review of Systems: reviewed, per HPI Physical Exam Physical Exam: Constitutional: disheveled, anxious HEENT: NCAT, no conjunctival injection, tongue appears bitten on the r side CV: well perfused, NSR on monitor Resp: no increased work of breathing GI: nondistended MSK: no gross deformities appreciated Skin: warm, dry, no rash appreciated Neuro: alert, oriented, no focal neurologic deficit appreciated Results & Data Results & Data Vital Signs (Past 12 Hours) Vital Signs Temp Pulse Resp BP Pulse Ox O2 Del Method 11/18/24 15:39 36.7 C 85 20 166/117 H 100 Room Air Supervising Physician Co-Signing Physician Notes I personally examined the patient and verified all damico points of history and exam, discussed case, and agree with decision making with Dr Paige Responded to code bran on behavioral health unit. Psychiatrist was present at the bedside whenever the event prompting code purple happened: She relayed that she and patient were discussing her situation, patient was tremulousbut not really any different than her current tremulousness. Then patient became unresponsive slumped over sideways and had maybe 30 seconds of tonic clonic movement as well as drooling. After the tonic-clonic movement resolved she was not very responsive. Vitals were stable throughout. By the time we get to the room she is still very slow to respond, and over maybe the ensuing 5 minutes she is starting to be able to express herself with a lot of confusion over what happened. Her complaints largely stem to her psychiatric complaints as to why she is here, with no real new complaints. Vitals noted. Whenever we first entered the room she was minute mildly responsive, somewhat hypertensive, but otherwise in no distress drool coming out of the right side of her mouth. No focal neurodeficits. Later she is much more responsive and talkative with a few minutes where she faded back to normal. Breathing unlabored no accessory muscle use good effort. Skin without rashes pallor or icterus. Neuro without focal deficits. Seizurelikely multifactorial. Benzodiazepine withdrawal and psychiatric medications could certainly lower her seizure threshold, and I also wonder a little bit about the head trauma/concussion. Does not sound like she has recurrent seizure issuesagree with one-time additional dose of benzodiazepine for now, agree with psychiatry plan for a stable dose of benzodiazepine at bedtime and a slow taper. Neurology already following, certainly will welcome their opinion on chronic seizure suppression, but I doubt this will be necessary at this time. Workup already ordered for tremor/etc. will be more than suitable for a workup for any structural reason for seizure. Otherwise as above. Resident Activity Tracking Resident Involvement: Resident Care Provided Care Provided: Adult Hospital Medicine
--- NOTE | 2024-11-18 17:21 | Billing Data ---
Date of Service November 18, 2024 Coding Level of Care Code 87903 INT INP/OBS CARE
--- NOTE | 2024-11-18 18:42 | Magnetic Resonance Report ---
Clinical History: Possible seizure Technique: Multiple T1 and T2-weighted magnetic resonance images were obtained of the brain without gadolinium contrast Findings: There is no sign of acute or old infarction with normal-appearing diffusion weighted images. There is mild cerebral atrophy, within expected limits for the patient's age. There are small areas of increased T2 signal intensity within the periventricular white matter of the cerebral hemispheres bilaterally. This is most likely due to chronic small vessel ischemic disease. No definite mass lesion is seen on this noncontrast study. There is no intracranial hemorrhage or other fluid collection. No midline shift or other form of herniation is seen. There is no hydrocephalus. Normal flow-voids are seen within the arteries of the [id number]. The orbits and paranasal sinuses appear normal. The mastoid air cells appear clear. Impression: 1. Mild white matter abnormalities, likely due to chronic small vessel ischemic disease 2. Otherwise unremarkable noncontrast MRI of the brain Electronically signed by Case Rivera 11-18-2024 6:42 PM
--- NOTE | 2024-11-18 19:44 | Magnetic Resonance Report ---
COMPARISON: CT cervical spine 11/17/2024 FINDINGS: No acute fractures. There is 3 mm degenerative spondylolisthesis of C3 on C4. Degenerative marrow signal changes. No aggressive bone lesions. The cerebellar tonsils are not low-lying. It appears that there is small 1 mm diameter area of increased signal in the spinal cord extending from C3-C4 through C7-T1 levels. Potentially this may represent small syrinx. At the C2-C3 level, there are no significant degenerative changes. At the C3-C4 level,there is minimal dorsal disc osteophyte complex indenting the thecal sac. No significant canal stenosis. There is mild left foraminal narrowing secondary to asymmetric uncovertebral facet hypertrophy. At the C4-C5 level,there is disc space narrowing. There is mild dorsal disc osteophyte complex effacing thecal sac and touching the ventral aspect of the cord. Mild central canal stenosis and bilateral lateral recess narrowing. Mild to moderate bilateral foraminal narrowing. Uncovertebral facet hypertrophy changes noted. At the C5-C6 level,there is mild disc space narrowing. Mild dorsal disc osteophyte complex more prominent on the right of midline causing moderate to severe right lateral recess narrowing. There is severe right foraminal narrowing secondary to uncovertebral facet hypertrophy. There is mild left foraminal narrowing. At the C6-C7 level,there is moderate disc space narrowing with some endplate degenerative changes. Mild to moderate dorsal disc osteophyte complex indenting the thecal sac but not affecting the cord. Mild central canal stenosis. Mild bilateral foraminal narrowing secondary to uncovertebral facet hypertrophy. At the C7-T1 level,there is minimal disc bulging without significant canal stenosis or foraminal narrowing. IMPRESSION: Question of small spinal cord syrinx. Multilevel degenerative changes most pronounced at C4-C5, C5-6, C6-7 as above. Electronically signed by Renuka Shaw 11-18-2024 7:44 PM
[2024-11-18] MEDS: OMEGA-3 (PURIFIED FISH OIL) 1 GM CAP PO SCH (20:11)
[2024-11-18] MEDS: ONDANSETRON INJ 2 MG/ML 2 ML VIAL IV PRN (20:24)
[2024-11-18] MEDS: MAGNESIUM HYDROXIDE SUSP 30 ML UDC PO PRN (20:49)
[2024-11-18] MEDS: ACETAMINOPHEN 325 MG TAB PO PRN (20:49)
[2024-11-18] MEDS: GABAPENTIN 300 MG CAP PO SCH (20:51)
[2024-11-18] MEDS: THIAMINE HCL 100 MG TAB PO SCH (20:52)
[2024-11-18] MEDS: MONTELUKAST SODIUM 10 MG TABLET PO SCH (20:52)
[2024-11-18] MEDS: MIRTAZAPINE TAB 15 MG TAB PO SCH (20:52)
[2024-11-18] MEDS: ASCORBIC ACID 500 MG TAB PO SCH (20:53)
[2024-11-18] MEDS: FEXOFENADINE HCL 180 MG TAB PO SCH (20:54)
[2024-11-18] MEDS: SACCHAROMYCES BOULARDII 250 MG CAP PO SCH (20:57)
[2024-11-18] MEDS: MELATONIN 3 MG TAB PO PRN (20:58)
[2024-11-19] MEDS: POLYETHYLENE (MIRALAX) 17 GM PACK PO PRN (06:06)
[2024-11-19] MEDS: LEVOTHYROXINE SODIUM 75 MCG TABLET PO SCH (06:06)
[2024-11-19] MEDS: Patient's HEIGHT &/or WEIGHT Needed STA (07:25)
[2024-11-19] MEDS: FOLIC ACID 1 MG TAB PO SCH (09:07)
[2024-11-19] MEDS: VITAMIN B COMPLEX TAB PO SCH (09:07)
--- NOTE | 2024-11-19 09:40 | Neurology Progress Note ---
Date of Service November 19, 2024 Assessment & Plan (1) Seizure: (2) Balance problem: (3) Tremor: (4) Ataxia: (5) Memory deficits: (6) Mood disorder: Plan This patient had a single generalized tonic-clonic seizure with postictal state and tongue biting the afternoon of November 18. She has recovered. I suspect this was a withdrawal seizure from alprazolam. MRI of the brain was largely unremarkable although there was some mild nonspecific old small vessel ischemic change. There were no abnormalities seen that would put her at risk for seizures. There were no other obvious etiologies for seizures either. There was no evidence for cerebellar atrophy or lesions. Patient has tremor, ataxia, and balance problems. These are somewhat improved since yesterday. Much of her tremulousness was likely withdrawal symptoms The patient has memory deficits and a significant mood disorder followed by psychiatry. Patient is still concerned that she may have chronic PROPOSAL DEVELOPMENT MANAGER Lyme disease. I explained to her that I am reticent to consider IV antibiotics without additiona l diagnostic proof. 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 Although she has diffuse degenerative changes of disc and bone at multiple levels I see no significant spinal stenosis or reason for a surgical consult at this time. I spoke with Dr. Lentz at length this morning regarding her case. Recommendations: 1. Hold on anticonvulsants for now. If she has a second seizure, I would give her a valproic acid loading dose and use Depakote orally. Depakote would be reasonable mood stabilizer as well. I would consider lamotrigine, but it takes several weeks to titrate this oral medication to a therapeutic dose and this is not practical as an inpatient. 2. I see no reason for an EEG at this time 3. Consider LP under fluoroscopy to evaluate for PROPOSAL DEVELOPMENT MANAGER Lyme disease or other inflammations. The patient is reconsidering this. 4. I will follow Overall, I spent a total of 65 minutes with this case including review of records, review of MRI films, direct evaluation of the patient, report generation, and discussion of the case with the patient and RN at bedside, Dr. Lentz, Dr. Hernandez, and Dr. Aguilar including differential diagnosis and treatment. Admission and Anticipated Discharge Date Admission Date: November 18, 2024 Subjective Patient feels much improved this morning compared to yesterday. She has more energy and she ate well. She had "3 bowel movements" since admission. Nursing reports the patient is less tremulous compared to previous. Blood pressure is 147/90. Sed rate was 39 and hemoglobin A1c was 5.3. CRP was less than 0.5. Other labs are pending. Approximately 1414 on November 18, the patient was with Dr. Lentz and Dr. Lentz witnessed the sudden onset of patient staring off. She was stiffening for seconds and then went into rhythmic generalized jerking. The whole event lasted 30 seconds. She was not responsive during this event. Following this she had 10 minutes of significant confusion. The patient herself has no recall of what happened. The patient bit the right side of her tongue during the event but did not have urinary incontinence. Today, except for sore tongue, she feels back to where she was before. The patient tells me that she was taking 2 mg of alprazolam every evening, but also occasionally took extra during the day if she needed. When she was admitted she was put on 0.5 mg in the evening. The patient has had no further seizures or spells since. MRI of the brain without contrast showed mild (only) old small vessel ischemic changes diffusely. There was minimal generalized atrophy. There was no acute stroke. I reviewed these films. MRI of the cervical spine without contrast showed diffuse degenerative changes from C3-T1 involving disc and bone. There seems to be a very tiny syrinx from the top of C4 down to the top of T1 bone. There was no significant spinal stenosis or any findings that would warrant a surgical opinion. I reviewed these films. The patient's levothyroxine was increased from 25 mcg a day to 75 mcg a day. Results & Data Vital Signs (Past 12 Hours) Vital Signs Temp Pulse Pulse Resp BP Pulse Ox O2 Del Method 11/19/24 07:27 36.7 C 73 18 147/90 H 98 Room Air 11/19/24 04:07 36.6 C 70 17 138/90 97 Room Air 11/18/24 23:15 36.7 C 74 18 155/104 H 99 Room Air 11/18/24 21:48 75 Exam (Neuro) Physical Exam: She is awake and alert. Speech is without aphasia or dysarthria. She is calm and cooperative and her thought processes seem intact to conversation. She is not as tremulous or shaky as she was yesterday and I see no myoclonic jerks. She does not seem anxious. Extraocular muscles are intact without nystagmus. There is no facial droop. Tongue is midline. Coordination is normal in the arms without obvious ataxia. There was some occasional action tremor of the left upper extremity at times but other times it was quite steady with [id number] testing. There was no significant action tremor noted in the right. Strength seems symmetrical in the limbs. PG Care Time/CCT Total # of Minutes Spent Total Time Spent with Patient: Total time spent is greater than 50% in coordination of care (as documented) at patient's floor/unit and/or counseling patient: Coding Level of Care Code 08049 SUB INP/OBS CARE 3/50MIN Diagnoses Seizure R56.9 Balance problem R26.89 Tremor R25.1 Ataxia R27.0 Memory deficits R41.3 Mood disorder F39 Time Spent (min) 65
--- NOTE | 2024-11-19 10:35 | Discharge Summary ---
Date of Service November 19, 2024 Admission HPI Per Admitting Provider Code bran was called on the [facility] on 11/18/24 for seizure like activity. The patient was talking to the psychiatrist when she rolled on her side and began shaking for about 30 seconds. Reportedly appeared unconscious for a moment and then began to come to. Per the psychiatrist, the patient seemed more confused after the episode. The patient had no recollection of the event. Pt then had an episode of vomiting. On evaluation the patient was significantly hypertensive, NSR on monitor. Glucose was WNL. Decision was made to transfer to medical floor for further evaluation and monitoring. She is a 302 hold Pt consented to contact with her to discuss the event. He states that she has been taking his xanax 1mg tabs prior to admission. She does have seizure history in the context of EtOH withdraw but last was 2-3 years ago. Admission Exam Per Admitting Provider Constitutional: disheveled, anxious HEENT: NCAT, no conjunctival injection, tongue appears bitten on the r side CV: well perfused, NSR on monitor Resp: no increased work of breathing GI: nondistended MSK: no gross deformities appreciated Skin: warm, dry, no rash appreciated Neuro: alert, oriented, no focal neurologic deficit appreciated Principal Diagnosis General Tonic Clonic Seizure Discharge Exam GA: well groomed, well nourished in no apparent distress. AAOx3 HEENT: head normocephalic, atraumatic. EOMI RESP: vesicular breath sounds b/l. No wheezes, rhonchi, or rales CARDIOVASCULAR: S1 and S2 heard. No murmurs, rubs, or gallops. Radial pulses 2+ b/l RRR GI: No tenderness or masses felt to palpation MSK: no gross abnormalities or focal deficits SKIN: warm, dry, no edema PSYCH: appropriate mood and affect NEURO: no focal deficits. CN 2-12 intact. speech fluent. 2+ patellar reflexes. Strength 5/5 in UE and LE B/L Discharge Data Allergies Allergy/AdvReac Type Severity Reaction Status Date / Time amoxicillin Allergy Severe HIVES Verified 11/17/24 01:58 clavulanic acid Allergy Severe HIVES Verified 11/17/24 01:58 Consultations 11/18/24 23:00 Consult Psychiatry Routine Ordered Studies 11/18/24 16:04 MR brain wo con Routine MR cervical spine wo con Routine Hospital Course (1) Seizure: This patient had a single generalized tonic-clonic seizure with postictal state and tongue biting the afternoon of November 18. She has recovered. Suspect secondary to benzo withdraw. stable to return to [facility] stop keppra seizure precautions hold on anticonvulsants for now, consider Depakote if needed and for mood stabilization as per neurology recs follow lumbar puncture under fluoroscopy to evaluate for CORE DRILLER HELPER Lyme disease or other inflammatory conditions encourage PO food and fluid intake for nutrition Total Time Total Time Spent Total Time Spent (In Minutes): please see attending attestation Discharge Plan Discharge Items Patient Disposition: Transfer Behavioral Health Fac Reason For Visit: SEIZURE Discharge Diagnosis: Seizure Activity: Resume your previous activity Non-emergency contact: Primary Care Provider Call non-emergency contact if: your symptoms worsen Follow-up/Referrals: [facility] [Outside] - 11/22/24 (INTAKE APPOINTMENT CAN ARRIVE ANYTIME BETWEEN [phone], PLEASE BRING ID AND INSURANCE CARD. THIS IS FOR D&A MEDICATION MANAGEMENT AND THERAPY.) Arnold Zavala [Primary Care Provider] - Diet: Regular Addtl Attending Provider Instructions: Was observed on medical floor for seizure activity yesterday. No further seizure activity or overnight events. She is stable for transfer to behavioral health unit floor. Pending Studies at Discharge: No Stand-Alone Forms: My [facility] Medications and DC Order Prescriptions: Continued valacyclovir 1 gram tablet 1,000 mg PO QDL montelukast [Singulair] 10 mg tablet 10 mg PO QPM alprazolam [Xanax] 0.5 mg tablet 0.5 mg PO DAILY PRN (Reason: Anxiety) medical [facility] 1 dose inhalation DIRECTED PRN (Reason: NEEDED) ascorbic acid (vitamin C) [Vitamin C] 1,000 mg Tablet 1,000 mg PO BID famotidine 40 mg Tablet 40 mg PO BID fexofenadine 180 mg Tablet 180 mg PO BID levothyroxine 25 mcg Tablet 25 mcg PO DAILY niacinamide 500 mg Tablet 500 mg PO DAILY B-complex with vitamin C Tablet 1 tab PO DAILY omega-3 fatty acids 1,250 mg Capsule 1,250 mg PO BID cholecalciferol (vitamin D3) [Vitamin D3] 125 mcg (5,000 unit) Tablet 125 mcg PO BID coQ10 (ubiquinol) 100 mg Capsule 300 mg PO QAM vitamin E 180 mg/2 mL Drops 180 mg PO QAM Quercetin Complex 625 mg Tablet 1 tab PO BID Magnesium-Theor 288 mg PO QAM Pancreatic Enzyme Tabs 500 mg PO BID zinc gluconate 30 mg Tablet 30 mg PO DAILY Nattokinase 50 mg Capsule 100 mg PO QPM curcumin-phosphatidylcholine 500 mg Capsule 500 mg PO QAM Saccharomyces boulardii-yeast 5 billion cell- 200 mg Capsule,Delayed Release(Dr/Ec) 2 cap PO BID ashwagandha extract 500 mg Capsule 500 mg PO QAM berberine-herbal drugs Capsule 1 cap PO QAM Rx Instructions: 550 MG Butyrate 500 mg PO BID Lam 4.2 mg PO BID Piceid Resveratrol 1 tab PO DAILY Pure Encap. Probiotic 50 billion cells PO BID hydroxyzine HCl 50 mg tablet 150 mg PO HS gabapentin [Neurontin] 300 mg capsule 300 mg PO TID bupropion HCl [Wellbutrin XL] 300 mg tablet extended release 24 hr 300 mg PO DAILY Admission Data Admit Date/Time: 11/18/24 15:50 Attending Provider: Jh Aguilar Admit Provider: Juan Daniel Paige Primary Care Provider: Arnold Zavala Other Providers: Bubba Adrian; Dinorah Mendez; [place]; Juani Stoner; Serena Thurston; Mao Lara; David Escobar; Aurelia Rodriguez; Kathy Lentz
[2024-11-19] MEDS: LORazepam 1 MG TAB PO STA (11:09)
[2024-11-19 13:03] LABS: CSF Count Tube # 3; CSF Xanthrochromic No xanthochromia
[2024-11-19 13:09] LABS: Red Blood Cell CSF Manual 0 (0); White Blood Cell CSF Manual 1 (0-5)
--- NOTE | 2024-11-19 13:10 | Hospitalist Progress Note ---
Date of Service November 19, 2024 Assessment & Plan (1) Seizure: Plan: This patient had a single generalized tonic-clonic seizure with postictal state and tongue biting the afternoon of November 18. She has recovered. Suspect secondary to benzo withdraw. #General Tonic-Clonic Seizure -stop keppra -seizure precautions -hold on anticonvulsants for now, consider Depakote if needed and for mood stabilization as per neurology recs -follow lumbar puncture under fluoroscopy to evaluate for BASS GUITAR TEACHER Lyme disease or other inflammatory conditions -encourage PO food and fluid intake for nutrition Rest per Psychiatry Care Admission and Anticipated Discharge Date Admission Date: November 18, 2024 Supervising Physician Co-Signing Physician Notes I personally examined the patient and verified all damico points of history and exam, discussed case, and agree with decision making with Dr Hernandez acutely feeling noticeably better. Chronically she wonders if she had BASS GUITAR TEACHER Lyme for a while. She also wonders about toxic mold exposures in her home. Notes that her has been living elsewhere more often than not for the last few months and notes that he feels a lot better. She notes they are planning on moving. Discussed with neurology. Discussed with psychiatry. Vitals noted, in general she is awake and alert pleasant no distress. HEENT normocephalic atraumatic mucous membranes moist. Breathing unlabored no accessory muscle use good effort. Skin without rashes pallor or icterus. Neuro without focal deficits. MRI reports noted. LP pending at the time that I saw her. Seizurelikely multifactorial. Benzodiazepine withdrawal and psychiatric medications could certainly lower her seizure threshold, and I also wonder a little bit about the head trauma/concussion. Does not sound like she has recurrent seizure issues Xanax at bedtime with long, slow taper. No need for chronic anticonvulsants at this time. Tremulousness/etc.appreciate neurology workup. Await LP as next step Severe protein calorie malnutritionappears to relate to poor self-care. Will need ongoing follow-up for this as well. . Medically safe/stablecoordinating with psychiatry. Will need close and ongoing outpatient follow-up. Subjective No overnight events. Pt feels less anxious today and tolerating PO intake well. She was pleased with the care she was receiving. She denied any seizure like activity since yesterday's episode. Denies fever, headache, vision changes, chills, SOB, CP, palpitations/fluttering/skipped beats, N/V/C/D, abdominal pain, complaints, or muscle weakness. Review of Systems Review of Systems: per HPI Physical Exam Physical Exam: GA: well groomed, well nourished in no apparent distress. AAOx3 HEENT: head normocephalic, atraumatic. EOMI. Healing laceration on right side of tongue from bite during seizure yesterday. RESP: vesicular breath sounds b/l. No wheezes, rhonchi, or rales CARDIOVASCULAR: S1 and S2 heard. No murmurs, rubs, or gallops. Radial pulses 2+ b/l RRR GI: No tenderness or masses felt to palpation MSK: no gross abnormalities or focal deficits SKIN: warm, dry, no edema PSYCH: appropriate mood and affect NEURO: no focal deficits. CN 2-12 intact. speech fluent. 2+ patellar reflexes. Strength 5/5 in UE and LE B/L Results & Data Results & Data Vital Signs (Past 12 Hours) Vital Signs Temp Pulse Resp BP Pulse Ox O2 Del Method 11/19/24 12:27 75 18 140/97 98 Room Air 11/19/24 11:54 36.9 C 75 18 147/105 H 100 Room Air 11/19/24 07:50 Room Air 11/19/24 07:27 36.7 C 73 18 147/90 H 98 Room Air 11/19/24 04:07 36.6 C 70 17 138/90 97 Room Air Resident Activity Tracking Resident Involvement: Resident Care Provided Care Provided: Adult Hospital Medicine
[2024-11-19 13:47] LABS: Cryptococcus neoformans/ga PCR Not Detected (NotDetected); Escherichia coli K1 PCR Not Detected (NotDetected); Haemophilius influenzae PCR Not Detected (NotDetected); Herpes Simplex Virus 1 PCR Not Detected (NotDetected); Herpes Simplex Virus 2 PCR Not Detected (NotDetected); Human Herpes Virus 6 PCR Not Detected (NotDetected); Human Parechovirus PCR Not Detected (NotDetected); Listeria monocytogenes PCR Not Detected (NotDetected); Neisseria meningitidis PCR Not Detected (NotDetected); Streptococcus agalactiae PCR Not Detected (NotDetected); Streptococcus pneumoniae PCR Not Detected (NotDetected)
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
--- NOTE | 2024-11-19 14:11 | Fluoroscopy Report ---
LUMBAR PUNCTURE CLINICAL HISTORY: Altered mental status PROCEDURE: Procedure and risks were explained. Informed consent was obtained. A final timeout was com pleted. The patient was placed prone on the fluoroscopic exam table. The lower lumbar region was prep ped and draped in sterile fashion. 1% lidocaine was utilized for skin anesthesia. Utilizing fluoroscopic guidance, a 22-gauge Sprotte spinal needle was advanced into the intrathecal s pace at the L3-4 disc space. Fluoroscopic spot images were obtained. Approximately 6 mL of clear CSF was removed and sent to the lab for analysis. The needle was removed and Band-Aid applied. The patien t tolerated the procedure well. Vital signs will be monitored postprocedure. Fluoroscopy time 7 seconds. Study dosed is 4.84 mGy. IMPRESSION: Lumbar puncture as above. Performed, dictated, and signed by Marco Diamond PA-C; to be co-signed by Dr. [place]. Electronically signed by: [place] M.D. 11/19/2024 2:41 PM
--- NOTE | 2024-11-19 16:47 | Billing Data ---
Date of Service November 19, 2024 Coding Level of Care Code 75298 SUB INP/OBS CARE MIN
--- NOTE | 2024-11-19 16:48 | Billing Data ---
Date of Service November 19, 2024 Coding Level of Care Code 42910 SUB INP/OBS CARE MIN
[2024-11-20 07:12] VITALS: RESP 16
--- NOTE | 2024-11-20 07:22 | Hospitalist Progress Note ---
Date of Service November 20, 2024 Assessment & Plan (1) Seizure: Admission and Anticipated Discharge Date Admission Date: November 18, 2024 Review of Systems Review of Systems: per HPI Results & Data Results & Data Vital Signs (Past 12 Hours) Vital Signs Temp Pulse Pulse Resp BP Pulse Ox O2 Del Method 11/20/24 07:09 36.8 C 78 16 108/74 96 Room Air 11/19/24 22:00 77 11/19/24 20:06 87 20 144/102 H 97 Room Air Resident Activity Tracking Resident Involvement: Resident Care Provided Care Provided: Adult Hospital Medicine
--- NOTE | 2024-11-20 08:57 | Neurology Progress Note ---
Date of Service November 20, 2024 Assessment & Plan (1) Seizure: (2) Balance problem: (3) Tremor: (4) Ataxia: (5) Memory deficits: (6) Mood disorder: Plan This patient had a single generalized tonic-clonic seizure with postictal state and tongue biting the afternoon of November 18. She has recovered. I suspect this was a withdrawal seizure from alprazolam. She has had no seizure activity since, and is on no specific anticonvulsants. Benzodiazepines will have anti seizure properties MRI of the brain was largely unremarkable although there was some mild nonspecific old small vessel ischemic change. There were no abnormalities seen that would put her at risk for seizures. There were no other obvious etiologies for seizures either. There was no evidence for cerebellar atrophy or lesions. Patient has tremor, ataxia, and balance problems. These are somewhat improved since yesterday. Much of her tremulousness was likely withdrawal symptoms The patient has memory deficits and a significant mood disorder followed by psychiatry. Patient is still concerned that she may have chronic [employer] Lyme disease. LP is unremarkable so far with no signs of infection or inflammation. Final studies, however, are pending. I explained to her that I am reticent to consider IV antibiotics without additional diagnostic proof of infection. 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 Although she has diffuse degenerative changes of disc and bone at multiple levels I see no significant spinal stenosis or reason for a surgical consult at this time. I spoke with Dr. Lentz this morning regarding her case. Recommendations: 1. Hold on anticonvulsants for now. If she has a second seizure, I would give her a valproic acid loading dose and use Depakote orally. Depakote would be reasonable mood stabilizer as well. I would consider lamotrigine, but it takes several weeks to titrate this oral medication to a therapeutic dose and this is not practical as an inpatient. 2. There is no reason for an EEG at this time 3. I have no further neurologic testing or treatment recommendations to make at this time. Please contact me if I can be of further assistance. I have told the patient and Dr. Lentz that I would be happy to follow this patient as an outpatient if desired (2 to 3 weeks with neurology PA at the [facility]) Overall, I spent a total of 50 minutes with this case including review of records, direct evaluation of the patient, report generation, and discussion of the case with the patient and RN at bedside, Dr. Lentz, and Dr. Hernandez, including differential diagnosis and treatment. Admission and Anticipated Discharge Date Admission Date: November 18, 2024 Subjective Patient did well overnight. There have been no further seizures or events. Blood pressure is 108/74, temp 36.8 She has no headache and feels well today. She has less tremor and tremulousness LP was performed November 19. Opening pressure was not recorded. Fluid was clear and colorless without xanthochromia. Gram stain showed no organisms or WBCs. AFB smear was negative. Final cultures are pending. There was 1 WBC 0 RBC, glucose of 63 (serum 88) and total protein of 41.8 (normal 15-45). [employer] CSF PCR testing was normal. West Nile, cryptococcus, and EBV titers are pending, as well as CSF Lyme testing and special protein studies. Results & Data Vital Signs (Past 12 Hours) Vital Signs Temp Pulse Pulse Resp BP Pulse Ox O2 Del Method 11/20/24 07:31 84 11/20/24 07:09 36.8 C 78 16 108/74 96 Room Air 11/19/24 22:00 77 Exam (Neuro) Physical Exam: She is awake and alert. Speech is without aphasia or dysarthria. Mood and affect are normal and appropriate. Processes are intact with reasonable memory to conversation. She is pleasant and cooperative. There is no pressured speech or tremulousness in the limbs or trunk. There is no obvious tremor this morning. Extraocular eye muscles are intact without nystagmus. There is no facial droop and tongue is midline. Stance sitting up in bed is normal. Coordination is normal in the arms and PG Care Time/CCT Total # of Minutes Spent Total Time Spent with Patient: Total time spent is greater than 50% in coordination of care (as documented) at patient's floor/unit and/or counseling patient: Coding Level of Care Code 74679 SUB INP/OBS CARE 3/50MIN Diagnoses Seizure R56.9 Balance problem R26.89 Tremor R25.1 Ataxia R27.0 Memory deficits R41.3 Mood disorder F39
--- NOTE | 2024-11-20 10:17 | Psychiatric Progress Note ---
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 Psychiatrically, pt's presentation is complex. She does indeed have a pre- existing history of a MDE with a suicidal attempt, and the recent marital conflict appears to have triggered another significant episode. Some psychotic symptoms have also developed - mild AVH, and possibly delusional thinking. With treatment, her thinking has been less suspicious/odd, and I am no longer con sidering it as delusional. She does have strong beliefs about alternative medicine, which is not necessarily pathological. She is also much less disorganized, associations have tightened up, and she maintains better eye contact. She also has not appeared to be responding to internal stimuli at all. For all these reasons I am much less suspicious of psychotic features or primary psychotic disorder. Regarding her depression, throughout the course of the stay, from ED presentation to now, she is continue to deny suicidal ideation and has not made attempts to actually harm herself. She also never had HI. Finally, we were aware of some substance use history, but became more acutely aware of her recent abuse of Xanax after she had a benzo withdrawal seizure, causing the transition over to the medical service. today, I spent a total of 35 minutes on this patients care, including review of chart, direct evaluation of the patient, counseling the patient, coordination with nursing and the primary service, interdisciplinary team meeting, and documentation. . (1) Major depressive disorder with current active episode: (2) Seizure: (3) Hypothyroidism: (4) Balance problem: Plan 11/20/24: - Patient continues to demonstrate good self-care, in terms of ADLs, eating, and participating in appropriate medical care. Her insight and judgment have significantly improved. As a result, no further inpatient psychiatric treatment is needed. The one-to-one can be discontinued, and she can be discharged off the 302 when medically appropriate for discharge. - Upon discharge, patient should continue on Xanax 1.5 mg nightly, Remeron 15 mg nightly, and Wellbutrin XL 300 mg in the morning. - She will follow-up with [facility] for dual diagnosis treatment, including therapy and medication management. They will handle the Xanax taper, which will have to be done slowly over the course of several weeks. I would recommend sending a 1 week prescription of the Xanax 1.5 mg dose to bridge the gap between inpatient and outpatient. - She will also be following up with neurology as an outpatient. 11/19/24 Recommendations: - Continue Xanax 1.5 mg nightly. Minimize as needed use, less being given for symptoms of withdrawal. I would avoid giving benzo PRNs for only anxiety, unle ss accompanied by other suspected symptoms of withdrawal - If high anxiety remains a concern, and trying to avoid further benzodiazepine use, I would recommend increasing gabapentin if the patient tolerates that. She could go to 300 mg 4 times a day, or 400 mg 3 times a day. - Continue Remeron 15 mg nightly, and Wellbutrin XL 300 mg in the morning - She will remain on medical for tonight, and I will reassess in the morning about whether she needs to return to psychiatric unit for further care, or can be discharged from medical at that point. - For now she continues on a 302, and a one-to-one should be continued. - Our psychiatric liaison has worked on referrals for outpatient drug and alcohol treatment and will follow-up with the patient regarding this. - Please continue to encourage eating regularly and attending to ADLs. Interval History Chief Complaint "[]". Subjective Subjective Patient was seen & assessed and interval progress reviewed with psychiatric liaison and nursing/1:1. Pt has been eating well, 100% of breakfast this morning. She had her lumbar puncture yesterday, with no headache or complication after the procedure. So far, no abnormalities in the spinal fluid tests, although some results are still pending. Neurology plans to follow-up with her after discharge regarding the remaining tests. I met with the patient along with the psychiatric liaison. Patient was bright and cheerful. She also was calmer than she was earlier in her admission. Still a slight tremor, but much improved from admission. She made good eye contact, was more organized and less tangential compared to admission as well. She spoke appropriately about her care here and her plans after discharge. She had good insight, stating "I hit rock bottom", and "I need to take care of my body because I was not." She says she is looking forward to starting dual diagnosis treatment through our [facility]. She is aware that her intake is on Saturday, and instructions are in her discharge paperwork. No suicidal ideation. No homicidal ideation. She has not had any of the auditory/visual hallucinations she reported on admission. She says the AH (of music and other noises) have been present intermittently on a chronic basis, but she has not had any in the past day. She slept well last night. Reports depression and anxiety are much improved. She denies any side effects to her present medications. she is looking forward to seeing her family, her dogs, and "making a big spaghetti dinner tonight." Repeatedly, she expressed gratitude for the quality of her care here. Physical Exam Psychiatric Orientation: alert, oriented x 3 and cooperative Apperance: appropriately dressed and appropriately groomed Eye Contact: good eye contact Motor Behavior: steady gait and station and + tremor; no psychomotor agitation and no psychomotor retardation Speech: normal rate/rhythm/volume of speech Affect: euthymic affect Full range, bright euthymic. Mild anxiety Thought Process: goal directed thought process, linear/logical thought process and clear/coherent thought process Thought Content: reality based without delusions future oriented Suicidal Thoughts: denies suicidal thoughts, denies suicidal plan and denies suicidal intent Homicidal Thoughts: denies homicidal thoughts, denies homicidal plan and denies homicidal intent Hallucinations: no auditory hallucinations and no visual hallucinations Cognition: recent memory grossly intact, remote memory grossly intact, attention grossly intact and language grossly intact Less stuttering. Attention has improved significantly Estimated Intelligence: consistent with education level Insight: good insight Judgment: good judgement Vital Signs (Past 24 Hours) Last Vital Signs Temp 36.8 C 11/20/24 07:09 Pulse 84 11/20/24 07:31 Resp 16 11/20/24 07:09 BP 108/74 11/20/24 07:09 Pulse Ox 96 11/20/24 07:09 O2 Del Method Room Air 11/20/24 07:09 Results & Data ([facility]) Laboratory Results Laboratory Results - last 24 hr 11/19/24 11/19/24 11/19/24 11:54 11:54 11:54 Glucose Fld Lyme DNA (PCR) Pending Fluid Comment CSF Appearance Clear CSF Color Colorless Xanthrochromic No xanthochromia CSF WBC 1 CSF RBC 0 CSF Cell Count Tube # 3 CSF Chemistry Tube # 1 CSF Glucose 63 CSF LDH Pending CSF Lactate Pending CSF Total Protein 41.8 CSF Albumin Pending CSF IgG Pending CSF IgG Index Pending CSF IgG Synthesis Rate Pending CSF Myelin Basic Protein Pending CSF IgG Oligoclonal Bnd Pending CSF VDRL Pending CSF Lyme IgG (Immblot) Pending Cancelled CSF Lyme IgG Band Pattern Pending Cancelled CSF Lyme IgM (Immblot) Pending CSF Lyme IgM Band Pattern CSF C.neoform/gat PCR CSF CMV DNA (PCR) CSF Enterovirus (PCR) CSF E. coli K1 (PCR) CSF H. influenzae (PCR) CSF HSV I (PCR) CSF HSV II (PCR) CSF HHV 6 (PCR) CSF L.monocytogenes PCR CSF N. meningitidis PCR CSF Parechovirus (PCR) CSF S. agalactiae (PCR) CSF S. pneumoniae (PCR) CSF VZV DNA (PCR) CSF West Nile RNA IgG Albumin (ISABEL) Lyme Specimen Source Cryptococcus Source Cryptococcal Ag (Latex) West Nile Virus Source EBV Source EBV DNA, Quant EBV DNA (PCR) 11/19/24 11/19/24 11/19/24 11:54 11:54 12:29 Glucose 88 Fld Lyme DNA (PCR) Fluid Comment CSF Appearance CSF Color Xanthrochromic CSF WBC CSF RBC CSF Cell Count Tube # CSF Chemistry Tube # CSF Glucose CSF LDH CSF Lactate CSF Total Protein CSF Albumin CSF IgG CSF IgG Index CSF IgG Synthesis Rate CSF Myelin Basic Protein CSF IgG Oligoclonal Bnd CSF VDRL CSF Lyme IgG (Immblot) CSF Lyme IgG Band Pattern CSF Lyme IgM (Immblot) Cancelled CSF Lyme IgM Band Pattern Pending Cancelled CSF C.neoform/gat PCR Not Detected CSF CMV DNA (PCR) Not Detected CSF Enterovirus (PCR) Not Detected CSF E. coli K1 (PCR) Not Detected CSF H. influenzae (PCR) Not Detected CSF HSV I (PCR) Not Detected CSF HSV II (PCR) Not Detected CSF HHV 6 (PCR) Not Detected CSF L.monocytogenes PCR Not Detected CSF N. meningitidis PCR Not Detected CSF Parechovirus (PCR) Not Detected CSF S. agalactiae (PCR) Not Detected CSF S. pneumoniae (PCR) Not Detected CSF VZV DNA (PCR) Not Detected CSF West Nile RNA Pending IgG Pending Albumin (ISABEL) Pending Lyme Specimen Source Pending Cryptococcus Source Pending Cryptococcal Ag (Latex) Pending West Nile Virus Source Pending EBV Source Pending EBV DNA, Quant Pending EBV DNA (PCR) Pending Current Inpatient Medications Current Inpatient Medications: Current Inpatient Medications Acetaminophen (Acetaminophen 325 Mg Tab) 650 mg PO Q4H PRN PRN Reason: Pain or Fever Stop: 12/18/24 15:49 Last Admin: 11/18/24 20:49 Dose: 650 mg Al Hydrox/Mg Hydrox/Simethicone (Aluminum/Magnesium Susp 30 Ml Udc) 15 ml PO Q4H PRN PRN Reason: Dyspepsia Stop: 12/18/24 15:49 Alprazolam (Alprazolam 0.5 Mg Tablet) 1.5 mg PO HS SCOTT Stop: 12/19/24 20:59 Last Admin: 11/19/24 21:14 Dose: 1.5 mg Ascorbic Acid (Ascorbic Acid 500 Mg Tab) 1,000 mg PO BID SCOTT Stop: 12/18/24 20:59 Last Admin: 11/20/24 08:11 Dose: Not Given Bupropion HCl (Bupropion Xl 300 Mg Tabcr) 300 mg PO DAILY SCOTT Stop: 12/19/24 08:59 Last Admin: 11/20/24 08:05 Dose: 300 mg Fexofenadine HCl (Fexofenadine Hcl 180 Mg Tab) 180 mg PO BID SCOTT Stop: 12/18/24 20:59 Last Admin: 11/20/24 08:06 Dose: 180 mg Fish Oil (Clarence-3 (Purified Fish Oil) 1 Gm Cap) 1 cap PO BID SCOTT Stop: 12/18/24 20:59 Last Admin: 11/20/24 08:06 Dose: 1 cap Folic Acid (Folic Acid 1 Mg Tab) 1 mg PO QAM SCOTT Stop: 12/19/24 08:59 Last Admin: 11/20/24 08:06 Dose: 1 mg Gabapentin (Gabapentin 300 Mg Cap) 300 mg PO TID SCOTT Stop: 12/18/24 20:59 Last Admin: 11/20/24 08:06 Dose: 300 mg Hydroxyzine HCl (Hydroxyzine Hcl 25 Mg Tab) 50 mg PO HSZ SCOTT Stop: 12/18/24 21:59 Last Admin: 11/19/24 21:08 Dose: 50 mg Levothyroxine Sodium (Levothyroxine Sodium 75 Mcg Tablet) 75 mcg PO DAILYBB SCOTT Stop: 12/19/24 06:29 Last Admin: 11/20/24 06:47 Dose: 75 mcg Magnesium Hydroxide (Magnesium Hydroxide Susp 30 Ml Udc) 30 ml PO Q12H PRN PRN Reason: Constipation Stop: 12/18/24 15:49 Last Admin: 11/18/24 20:49 Dose: 30 ml Melatonin (Melatonin 3 Mg Tab) 3 mg PO HS PRN PRN Reason: Sleep Stop: 12/18/24 15:49 Last Admin: 11/18/24 20:58 Dose: 3 mg Mirtazapine (Mirtazapine Tab 15 Mg Tab) 15 mg PO HS SCOTT Stop: 12/18/24 20:59 Last Admin: 11/19/24 21:08 Dose: 15 mg Montelukast Sodium (Montelukast Sodium 10 Mg Tablet) 10 mg PO QPM SCOTT Stop: 12/18/24 20:59 Last Admin: 11/19/24 21:08 Dose: 10 mg Ondansetron HCl (Ondansetron Inj 2 Mg/Ml 2 Ml Vial) 4 mg IV Q6H PRN PRN Reason: Nausea And Vomiting Stop: 12/18/24 20:04 Last Admin: 11/19/24 06:06 Dose: 4 mg Polyethylene Glycol (Polyethylene (Miralax) 17 Gm Pack) 17 gm PO DAILY PRN PRN Reason: Constipation Stop: 12/18/24 15:49 Last Admin: 11/19/24 06:06 Dose: 17 gm Saccharomyces Boulardii (Saccharomyces Boulardii 250 Mg Cap) 250 mg PO BID SCOTT Stop: 12/18/24 20:59 Last Admin: 11/20/24 08:07 Dose: 250 mg Thiamine HCl (Thiamine Hcl 100 Mg Tab) 100 mg PO BID SCOTT Stop: 12/18/24 20:59 Last Admin: 11/20/24 08:07 Dose: 100 mg Valacyclovir HCl (Valacyclovir Hcl 500 Mg Tablet) 1,000 mg PO DAILY SCOTT Stop: 12/19/24 08:59 Last Admin: 11/20/24 08:07 Dose: 1,000 mg Vitamin B Complex (Vitamin B Complex Tab) 1 tab PO QAM [facility] Stop: 12/19/24 08:59 Last Admin: 11/20/24 08:07 Dose: 1 tab
[2024-11-20 10:32] VITALS: BP 165/105; PULSE 82; TEMP 98.6; O2SAT 99
--- NOTE | 2024-11-20 14:19 | Discharge Summary ---
Date of Service November 20, 2024 Admission HPI Per Admitting Provider Code bran was called on the [facility] on 11/18/24 for seizure like activity. The patient was talking to the psychiatrist when she rolled on her side and began shaking for about 30 seconds. Reportedly appeared unconscious for a moment and then began to come to. Per the psychiatrist, the patient seemed more confused after the episode. The patient had no recollection of the event. Pt then had an episode of vomiting. On evaluation the patient was significantly hypertensive, NSR on monitor. Glucose was WNL. Decision was made to transfer to medical floor for further evaluation and monitoring. She is a 302 hold Pt consented to contact with her to discuss the event. He states that she has been taking his xanax 1mg tabs prior to admission. She does have seizure history in the context of EtOH withdraw but last was 2-3 years ago. Admission Exam Per Admitting Provider Constitutional: disheveled, anxious HEENT: NCAT, no conjunctival injection, tongue appears bitten on the r side CV: well perfused, NSR on monitor Resp: no increased work of breathing GI: nondistended MSK: no gross deformities appreciated Skin: warm, dry, no rash appreciated Neuro: alert, oriented, no focal neurologic deficit appreciated Principal Diagnosis Seizure Discharge Exam GA: well groomed, in no apparent distress. AAOx3 HEENT: head normocephalic, atraumatic. EOMI. RESP: vesicular breath sounds b/l. No wheezes, rhonchi, or rales CARDIOVASCULAR: S1 and S2 heard. No murmurs, rubs, or gallops. Radial pulses 2+ b/l RRR GI: No tenderness or masses felt to palpation MSK: no gross abnormalities or focal deficits SKIN: warm, dry, no edema PSYCH: appropriate mood and affect NEURO: no focal deficits. CN 2-12 intact. fluent speech Discharge Data Allergies Allergy/AdvReac Type Severity Reaction Status Date / Time amoxicillin Allergy Severe HIVES Verified 11/17/24 01:58 clavulanic acid Allergy Severe HIVES Verified 11/17/24 01:58 Consultations 11/18/24 23:00 Consult Psychiatry Routine Ordered Studies 11/18/24 16:04 MR brain wo con Routine MR cervical spine wo con Routine 11/19/24 10:26 IR lumbar puncture diagnostic Routine Hospital Course (1) Seizure: (2) Tremor: (3) Major depressive disorder with current active episode: Plan This patient had a single generalized tonic-clonic seizure with postictal state and tongue biting the afternoon of November 18. She has recovered. Suspect secondary to benzo withdraw. #General Tonic-Clonic Seizure -stop keppra -hold on anticonvulsants for now, consider Depakote if needed and for mood stabilization as per neurology recs -follow lumbar puncture results -encourage PO food and fluid intake for nutrition #Mental Health - routine follow-up with PCP, Psychiatry, and Neurology as outpatient - Continue Xanax 1.5 mg nightly. Consider taper as pt condition improves. - Continue Remeron 15 mg nightly and Wellbutrin XL 300 mg in the morning. -Rest of meds as prescribed Total Time Total Time Spent Total Time Spent (In Minutes): <30 Discharge Plan Discharge Items Patient Disposition: Home - Self-Care Reason For Visit: SEIZURE Discharge Diagnosis: Seizure Activity: Resume your previous activity Non-emergency contact: Primary Care Provider Call non-emergency contact if: your symptoms worsen Follow-up/Referrals: [facility] [Outside] - 11/22/24 (INTAKE APPOINTMENT CAN ARRIVE ANYTIME BETWEEN 9am and 2pm, PLEASE BRING ID AND INSURANCE CARD. THIS IS FOR D&A MEDICATION MANAGEMENT AND THERAPY.) Len Casarez MD [Physician] - Arnold Zavala [Primary Care Provider] - Diet: Regular Addtl Attending Provider Instructions: You were admitted to the inpatient hospital unit due to seizure-like activity. During the seizure, you bit your tongue. Each day you improved and felt less anxious. Your appetite improved and were medically stable during your stay. You also received a lumbar puncture procedure in order to help with diagnosis. Please follow-up with your Primary Care Doctor within 1-2 weeks to discuss your hospital stay and follow-up regularly (every 2 weeks or so) for care until decided by you and your doctor. Please follow-up with Neurology within 2-3 weeks to discuss your stay. Right now, no medications are indicated to prevent seizures. Please take your medications as prescribed. Discharge Plan - Continue Xanax 1.5 mg nightly. There will be plans to taper this medication and minimize use in a controlled way in association with your doctors. Please follow their instructions regarding this. - Continue Remeron 15 mg nightly and Wellbutrin XL 300 mg in the morning. Home medications - Take the rest of your medications as prescribed. Thank you for allowing us to be a part of your care. Pending Studies at Discharge: No Stand-Alone Forms: My [facility], Smoking Cessation Medications and DC Order Prescriptions: New mirtazapine 15 mg Tablet 15 mg PO HS Qty: 30 0RF alprazolam 1 mg tablet 1.5 mg PO HS 10 Days Qty: 15 0RF Continued valacyclovir 1 gram tablet 1,000 mg PO QDL montelukast [Singulair] 10 mg tablet 10 mg PO QPM medical marjuana 1 dose inhalation DIRECTED PRN (Reason: NEEDED) ascorbic acid (vitamin C) [Vitamin C] 1,000 mg Tablet 1,000 mg PO BID famotidine 40 mg Tablet 40 mg PO BID fexofenadine 180 mg Tablet 180 mg PO BID levothyroxine 25 mcg Tablet 25 mcg PO DAILY niacinamide 500 mg Tablet 500 mg PO DAILY B-complex with vitamin C Tablet 1 tab PO DAILY omega-3 fatty acids 1,250 mg Capsule 1,250 mg PO BID cholecalciferol (vitamin D3) [Vitamin D3] 125 mcg (5,000 unit) Tablet 125 mcg PO BID coQ10 (ubiquinol) 100 mg Capsule 300 mg PO QAM vitamin E 180 mg/2 mL Drops 180 mg PO QAM Quercetin Complex 625 mg Tablet 1 tab PO BID Magnesium-Theor 288 mg PO QAM Pancreatic Enzyme Tabs 500 mg PO BID zinc gluconate 30 mg Tablet 30 mg PO DAILY Nattokinase 50 mg Capsule 100 mg PO QPM curcumin-phosphatidylcholine 500 mg Capsule 500 mg PO QAM Saccharomyces boulardii-yeast 5 billion cell- 200 mg Capsule,Delayed Release(Dr/Ec) 2 cap PO BID ashwagandha extract 500 mg Capsule 500 mg PO QAM berberine-herbal drugs Capsule 1 cap PO QAM Rx Instructions: 550 MG Butyrate 500 mg PO BID Lam 4.2 mg PO BID Piceid Resveratrol 1 tab PO DAILY Pure Encap. Probiotic 50 billion cells PO BID hydroxyzine HCl 50 mg tablet 150 mg PO HS gabapentin [Neurontin] 300 mg capsule 300 mg PO TID bupropion HCl [Wellbutrin XL] 300 mg tablet extended release 24 hr 300 mg PO DAILY Discontinued alprazolam [Xanax] 0.5 mg tablet 0.5 mg PO DAILY PRN (Reason: Anxiety) Discharge Orders: Discharge Order (Routine); Ordered 11/20/24 Ordered By: Jh Aguilar Admission Data Admit Date/Time: 11/18/24 15:50 Attending Provider: Jh Aguilar Admit Provider: Juan Daniel Paige Primary Care Provider: Arnold Zavala Other Providers: Bubba Adrian; Dinorah Mendez; [place]; Juani Stoner; Serena Thurston; Mao Lara; David Escobar; Aurelia Rodriguez; Kathy Lentz Other Interventions: Discharge Summary Assessment (RN) Last Done: 11/20/24 12:27 Supervising Physician Co-Signing Physician Notes I personally examined the patient and verified all damico points of history and exam, discussed case, and agree with decision making with Dr Hernandez Feels better. Feels up to going home. Comfortable with the plan. Psychiatry notes that she no longer needs to be held involuntarily. Discussed that most of the LP studies are pending. Discussed close and ongoing outpatient PCP and neurology follow-up. Discussed benzodiazepine taper. Vitals noted, in general she is awake and alert pleasant no distress. HEENT normocephalic atraumatic mucous membranes moist. Breathing unlabored no accessory muscle use good effort. Skin without rashes pallor or icterus. Neuro without focal deficits. MRI reports noted. LP Initial studies reassuring, send outs are all pending. Seizurelikely multifactorial. Benzodiazepine withdrawal and psychiatric medications could certainly lower her seizure threshold, and I also wonder a little bit about the head trauma/concussion. Does not sound like she has recurrent seizure issues Xanax at bedtime with long, slow taper. No need for chronic anticonvulsants at this time. Safe/stable for home Tremulousness/etc.appreciate neurology workup. as far as what I have seen over the last 2 days, once she was back on benzodiazepines she no longer appears tremulousso I suspect a lot of the tremulousness was due to benzo withdrawal. At the same time the same workup will be useful for her other neurologic and physical symptoms. Outpatient PCP and neuro follow-up. for her benzodiazepine dependency and anxiety, she is set up with [facility] as an outpatientpsychiatry noted that they would see her next week and take over the Xanax taper from therewith that in mind I prescribed enough for 1.5 mg at bedtime through the end of next week to ensure that she would have enough to get her to that follow- up Severe protein calorie malnutritionappears to relate to poor self-care. Will need ongoing follow-up for this as well. Discussed that Remeron may help with this Medically safe/stable and psychiatry feels she is safe and stable for home as well. Resident Activity Tracking Resident Involvement: Resident Care Provided Care Provided: Adult Hospital Medicine
--- NOTE | 2024-11-20 16:54 | Billing Data ---
Date of Service November 20, 2024 Coding Level of Care Code 13895 IN/OBS DISCH 30 MIN/LESS
[2024-11-25 00:13] LABS: Source Serum; West Nile Virus, PCR Source CSF; West Nile Virus, PCR, CSF NOT DETECTED (NOT DETECTED)
== END 2024-11-20 14:43 | disposition home or self-care (01) ==
LOC: SUATTDRO 14:57 → 2E 14:57 → INTOOBSV 15:50